=== PATIENT | male | born 1960 | race Caucasian/White ===

== ENCOUNTER 2023-05-24 11:03 | Inpatient (IN) ==
--- NOTE | 2023-05-23 11:32 | Anesthesiology Consultation ---
Date of Service May 23, 2023 Assessment & Plan (1) Encounter for pre-operative examination: - Pt scheduled for admission post-operatively. Plan for TYREE Day AM DOS due to possibility that patient may have a roommate. OR aware. Day order placed. - Danielis instructions per surgeon/prescriber - Orthopedics visit (05/18/23): "history of rotator cuff tear being managed conservatively by my colleague Dr. Lebron presents for eval of R shoulder infection. He noticed end of last week development of redness and swelling with increasing pain of right shoulder/upper arm that progressed over the following days. He ultimately went to the [facility] emergency department on 05/16 for evaluation. There he had an evaluation including an x-ray and an ultrasound scan of his right upper extremity. There was reported no findings of a DVT but possible concern of infection with possible abscess. He reports they were unsuccessful at attempts for aspiration. He was started on antibiotics (cefdinir) and discharged with recommendations to follow-up with orthopedics. He did have low-grade fever while at the ER but since starting on cefdinir, he has not had any recurrent fevers and reports he has had minimal improvement in his redness and swelling of his shoulder. He continues to have significant pain though with very marked limitations in range of motion and pain elicited with trying to move his shoulder." > Decision by orthopedics to have patient scheduled for surgical intervention/I&D. - Multiple attempts to obtain additional information/testing regarding PMHX/PSHX unsuccessful. Case reviewed with Dr. Santana. He feels that patient acceptable risk for given surgery without further evaluation and/or testing from his perspective pending evaluation AM DOS. - Patient acceptable risk for given surgery pending evaluation AM DOS. Chart Review Chart Review: Patient NOT seen in Pre Admission Testing History Surgery Operation Date: 05/24/23 12:55 Proposed Procedures p Right Arthroscopy Shoulder Irrigation and Debridement - Pascual Lebron, Height/Weight Height: 6 ft 1 in Weight: 113.398 kg Allergies Allergy/AdvReac Type Severity Reaction Status Date / Time No Known Allergies Allergy Unverified 05/23/23 12:16 Medications Home Medications Medication Instructions Recorded Confirmed Last Taken Hydrocodon/Acetaminophen 5MG/300MG 1 tab PO Q6H PRN Pain #0 tabs 07/13/15 05/23/23 Unknown (VICODIN (5MG/300MG)) Pregabalin (Lyrica) 300 mg PO BID ##0 07/13/15 05/23/23 Unknown DULOXETINE HCL (CYMBALTA) 60 mg PO BID #0 caps 07/14/15 05/23/23 Unknown linaclotide 72 mcg capsule 72 mcg PO QPM 07/06/21 05/23/23 Unknown (Linzess) Antacid 1 dose PO HS 05/23/23 05/23/23 Unknown apixaban 5 mg tablet (Eliquis) 5 mg PO BID 05/23/23 05/23/23 Unknown Past Medical History Medical History AAA (abdominal aortic aneurysm) Recent repair 01/29/2023 [facility] Acoustic neuroma Anemia Recent diagnosis currently undergoing further evaluation of this (including bone marrow biopsy- results still pending), preop hgb 11.0 on 05/23/23 labs Deafness in right ear Mahin filter in place Hearing deficit [place] R > L History of DVT (deep vein thrombosis) 12/2022 r/t immobility, taking Eliquis, mahin filter placed History of gastric ulcer 01/2023 History of GI bleed History of Lyme disease 2000- Chronic, reason for disabled state per patient (ambulation issues) History of pulmonary embolism 2017 Infection of shoulder Right Neuropathy Past Surgical History Surgical History History of AAA (abdominal aortic aneurysm) repair History of bone marrow biopsy History of cholecystectomy History of colonoscopy History of esophagogastroduodenoscopy (EGD) Lab Results Anesthesia Preop Results Results Anesthesia Widget: WBC 4.45 K/ul (4.8-10.8) L 05/23/23 Hgb 11.0 g/dl (14.0-18.0) L 05/23/23 Hct 36.6 % (42.0-52.0) L 05/23/23 Plt 453 K/uL (130-400) H 05/23/23 Na 141 mmol/L (136-145) 05/23/23 K 4.6 mmol/L (3.5-5.1) 05/23/23 Cl 107 mmol/L (98-107) 05/23/23 CO2 30 mmol/L (21-32) 05/23/23 BUN 16 mg/dl (6-23) 05/23/23 Creat 0.68 mg/dl (0.6-1.4) 05/23/23 Glucose Level 105 mg/dl (70-99(Fasting)) H 05/23/23 Testing Electrocardiogram Date: 05/23/23 NSR at 61bpm.
[~2023-05-24 11:03] MED LIST: LR 60ML/HR IV SCH; VANCOMYCIN HCL 1,750 MG in SODIUM CHLORIDE 0.9% 500 ML IV SCH
--- NOTE | 2023-05-24 11:47 | History & Physical Bridge Note ---
Date of Service May 24, 2023 History & Physical Bridge Note I have examined the patient, reviewed the History & Physical and in the interval since the performance of the History & Physical I have noted the following changes of clinical significance: no changes noted
[2023-05-24] MEDS ORDERED: ATROPINE SULFATE 0.1 MG/ML 10ML SYR IV PRN (12:19)
[2023-05-24] MEDS ORDERED: ONDANSETRON INJ 2 MG/ML 2 ML VIAL IV PRN ×2 (12:19→16:00)
[2023-05-24] MEDS ORDERED: PROMETHAZINE HCL 6.25 MG in SODIUM CHLORIDE 0.9% 50 ML IV PRN (12:19)
[2023-05-24] MEDS ORDERED: LIDOCAINE 2% 2 ML VIAL/AMP(20MG/ML) INFIL ONE (12:21)
[2023-05-24] MEDS ORDERED: PROPOFOL IV EMULSION 10 MG/ML 20 ML VIAL IV ONE (12:21)
[2023-05-24] MEDS ORDERED: DEXAMETHASONE SOD INJ 4 MG/ML VIAL ONE (12:21)
[2023-05-24] MEDS ORDERED: MIDAZOLAM HCL 1 MG/ML 2ML VIAL ONE (12:22)
[2023-05-24] MEDS ORDERED: fentaNYL citrate PF 100 MCG/2 ML VIAL ONE (12:22)
[2023-05-24] MEDS ORDERED: EPINEPHrine INJ 1 MG/ML AMP ONE (13:20)
[2023-05-24] MEDS ORDERED: BUPIVACAINE/EPINEPHRINE 0.5% MPF 1:200,000 30 ML VIAL ONE (13:20)
[2023-05-24] MEDS ORDERED: ONDANSETRON INJ 2 MG/ML 2 ML VIAL ONE (14:08)
--- NOTE | 2023-05-24 14:38 | Operative Report ---
PG Post Operative Report Pre & Post Diagnosis Operation Date: 05/24/23 12:55 Pre-Op Diagnosis: Infection Right Shoulder Post-Op Diagnosis: Infection Right Shoulder I identified the patient and participated in the time-out.: Yes Procedure Operation Date: 05/24/23 12:55 Actual Procedures p Right Arthroscopy Shoulder Irrigation and Debridement(Right) - Pascual Lebron DO Surgeon Pascual Lebron DO Claim Administrator Pascual Salinas PA-C Estimated Blood Loss 5 Findings Consistent with Post-Op Diagnosis Specimens Swab cultures Description of Procedure On May 24, 2023 Claudio arrived at [facility] for the above procedure. He was seen in the preoperative holding area and the operative extremity identified and signed. He was given a preoperative antibiotic. He was taken back to the operative room and laid on the table in supine position. Is put under general anesthesia. Is put into the beachchair position. The right shoulder was prepped and draped in sterile fashion. A timeout was done. The patient and the operative extremity was properly identified. A scope was introduced into a posterior portal. There was some rather watery purulent discharge that came out of the cannula. This was cultured. The scope was placed into the joint. An anterior portal was made. Shaver was used to do a debridement of the synovium. About 3 L of fluid was washed through the joint intra-articularly. There was a large rotator cuff tear of the supra and infraspinatus. There was some arthritis of the humeral head. The scope was then put in the subacromial space. A lateral portal was made and a shaver was used to do a complete subacromial and subdeltoid bursectomy. There was cloudy fluid throughout. 6 L of saline solution were irrigated through the subacromial and subdeltoid spaces. Significant time was spent debriding any pathologic tissue. The shoulder was brought through a full range of motion. An additional anterior lateral portal was made and a shaver was used from another direction to clean out any remaining pockets of abscess. A total of 9 L of saline were irrigated through the shoulder joint. Hemostasis was obtained with electrocautery. Arthroscopic instruments removed from the shoulder. Portal sites were closed with 3-0 nylon. He was then placed in a soft dressing and a regular arm sling. He was then extubated and transferred to a [facility]. He was taken to the postanesthesia care unit in stable condition. He tolerated the procedure well. Pascual Salinas PA-C, was present for the entire procedure. He was critical for patient positioning, prepping, draping, retraction exposure, wound closure and application of sterile dressing. I attest to the content of the Intraoperative Record and any orders documented therein. Any exceptions are noted below.
--- NOTE | 2023-05-24 15:05 | Anesthesiology Progress Note ---
Date of Service May 24, 2023 Anesthesia Post Procedure Vital Signs Vital Signs: Temp Pulse Pulse Resp BP Pulse Ox O2 Del Method 05/24/23 15:00 62 23 162/93 H 97 Oxymask 05/24/23 14:50 36.2 C L 66 23 163/97 H 94 Oxymask 05/24/23 11:38 36.7 C 63 18 108/72 97 Room Air O2 Flow Rate 05/24/23 15:00 6 05/24/23 14:50 8 05/24/23 11:38 Pain Intensity Right Shoulder: Pain Intensity: 2 Leg: Pain Intensity: 3 Transfer of Care Handoff Completed per policy Notes Mental Status: alert / awake / arousable Patient Amnestic to Procedure: Yes Nausea / Vomiting: adequately controlled Pain: adequately controlled Airway Patency, RR, SpO2: stable & adequate BP & HR: stable & adequate Hydration State: stable & adequate Anesthetic Complications: no major complications apparent
[2023-05-24] MEDS: HYDROmorphone INJ 1 MG/ML SYRINGE IV PRN ×3 (15:10→15:32)
[2023-05-24] MEDS ORDERED: VANCOMYCIN CONSULT ACTIVE PRN (16:00)
--- NOTE | 2023-05-24 17:23 | Pharmacy Report ---
Pharmacy PK ABX Note - Date of Service May 24, 2023 - Assessment and Plan Assessment 62 year old M admitted for right shoulder infection s/p incision and drainage. Started on vancomycin IV following surgery. Patient has a known rotator cuff tear and cuff tear arthropathy of his right shoulder. He was evaluated at [facility] ER due to increasing pain and swelling of his right shoulder and was started on antibiotics. He was then seen by outpatient Ortho who recommended irrigation and debridement. 05/24/23: R shoulder culture pending Plan Vancomycin * 1750 mg IV x 1 given pre-op * Maintenance dose: 1500 mg IV every 12 hours * Regimen is predicted to achieve target AUC/LORI of 400-600 mg/L.hr * predicted steady state trough: 17.5 mcg/mL * predicted steady state AUC: 543 * Drug level to be obtained if vanco is extended past 48 hours Pharmacy will continue to follow and will adjust dose/frequency as necessary. Thank you. Pharmacy has transitioned to AUC monitoring for vancomycin. AUC/LORI is the preferred PK/PD target and is associated with decreased risk of nephrotoxicity compared to traditional trough targets.
--- NOTE | 2023-05-24 18:28 | Hospitalist Consultation ---
Date of Consultation May 24, 2023 Assessment & Plan (1) Infection of shoulder: Take blood cultures now to ensure sterile in case of need of PICC line. HIM request for blood cultures taken at [facility] on May 15. Since cellulitis area improving on cefdinir if blood culture negative from May 15 doubtful he would be bacteremic now and unlikely MRSA given improvement without coverage for this. Vancomycin ordered by primary team, will add cefepime pending blood and surgical culture results. Infectious disease consulted by primary team for ongoing antibiotic selection. (2) Mahin filter in place: (3) History of pulmonary embolism: Continue Eliquis - restarted by surgical team (4) History of AAA (abdominal aortic aneurysm) repair: Recently repaired in December per patient (5) History of gastric ulcer: Med rec not performed on admission and initially unable to request outside external pharmacy list however patient consented to this now and changed. Appears he should be taking both pantoprazole and famotidine therefore added to home meds and prescribed. (6) Microcytic anemia: Consider iron studies as outpatient - would avoid IV iron during active infection Plan VTE Prophylaxis - Eliquis Diet - per primary orthopedic team Disposition - continued med.surg admission Thank you for the consult we will continue to follow along with you while this patient is admitted. History of Present Illness Reason for Consultation: [place] right shoulder infection Attending Physician: Pascual Lebron, History of Present Illness Henrry Hannon is a 62 year old male who presents as a direct admission under orthopedics for septic shoulder with irrigation and debridement performed earlier today by Dr Lebron with estimated blood loss 5ml. The patient reports initial traumatic injury in November of this year and he has been seeing Dr Lebron for this with diagnosed right rotator cuff tear for which he received a subacromial injection both in November and February. In the mean time he reports having a rupture aortic aneurysm with subsequent repair and recurrent DVT requiring a mahin filter which is still in place in December. 2 weeks ago he started noticing erythema and swelling of his right upper arm. He had a open tear of skin of his elbow around the same time but does not think the redness was around this area. He was seen at [facility] ER on May 15 and had a right shoulder XR and US with concern for an abscess however they had no orthopedic cover therefore was started on cefdinir and advised to follow up with his orthopedic surgeon. This occurred on May 18 at [address] point a [address] shoulder was obtained concerning for septic arthritis hence the subsequent direct admission for I&D. He does note significant improvement of his cellulitis since starting the cefdinir which he has been on constantly including this morning since his ER visit. No fever or chills. He thinks blood cultures were taken at [facility] although results of this not available at this time. Allergies Allergy/AdvReac Type Severity Reaction Status Date / Time No Known Allergies Allergy Unverified 05/24/23 11:43 Home Medications Medication Instructions Recorded Confirmed Type Hydrocodon/Acetaminophen 5MG/300MG 1 tab PO Q6H PRN Pain #0 tabs 07/13/15 05/24/23 History (VICODIN (5MG/300MG)) Pregabalin (Lyrica) 300 mg PO BID ##0 07/13/15 05/24/23 History DULOXETINE HCL (CYMBALTA) 60 mg PO BID #0 caps 07/14/15 05/24/23 History linaclotide 72 mcg capsule 72 mcg PO QPM 07/06/21 05/24/23 History (Linzess) Antacid 1 dose PO HS 05/23/23 05/24/23 History apixaban 5 mg tablet (Eliquis) 5 mg PO BID 05/23/23 05/24/23 History cefdinir 300 mg capsule 300 mg PO BID 05/24/23 05/24/23 History famotidine 40 mg tablet 40 mg PO HS 05/25/23 05/25/23 History omeprazole 40 mg capsule,delayed 40 mg PO DAILY 05/25/23 05/25/23 History release Patient History Medical History (Updated 05/25/23 @ 06:43 by Nicolas Freeman MD) AAA (abdominal aortic aneurysm) Recent repair 01/29/2023 [facility] Acoustic neuroma Anemia Recent diagnosis currently undergoing further evaluation of this (including bone marrow biopsy- results still pending), preop hgb 11.0 on 05/23/23 labs Deafness in right ear Mahin filter in place Hearing deficit [place] R > L History of DVT (deep vein thrombosis) 12/2022 r/t immobility, taking Eliquis, mahin filter placed History of gastric ulcer 01/2023 History of GI bleed History of Lyme disease 2001- Chronic, reason for disabled state per patient (ambulation issues) History of pulmonary embolism 2018 Infection of shoulder Right Neuropathy Surgical History (Updated 05/24/23 @ 23:31 by Nicolas Freeman MD) History of AAA (abdominal aortic aneurysm) repair History of bone marrow biopsy History of cholecystectomy History of colonoscopy History of esophagogastroduodenoscopy (EGD) Social History Smoking Status: Never smoker Second Hand Exposure: No; Do You Dip or Chew Tobacco: No; Hx Alcohol Use: No Hx Substance Use: No Preferred Language: [place] Communication Ability: Effective Labor Economist Required: No Beliefs That Will Affect Care: None Current Living Situation: Spouse Feels Safe at Home: Yes Safety Concerns: Feels Safe At This Time Assistive Devices: Scooter/Electric Scooter Review of Systems Review of Systems: All systems reviewed & are unremarkable except as noted in HPI & below Physical Exam Constitutional: WD/WN, vitals as above Respiratory: normal respiratory effort, lungs clear to auscultation Cardiovascular: Rate/Rhythm: regular rate and regular rhythm Heart Sounds: no murmur Extremities: normal capillary refill and + pedal edema (1+ equal b/l); no calf tenderness Gastrointestinal (Abdomen): normal bowel sounds, soft, nontender, no hepatosplenomegaly Skin: no rashes, warm and dry no area of cellulitis surrounding surgical dressing, surgical dressing not removed Neurologic: moves all extremities and awake; not confused Psychiatric: A+Ox3, euthymic affect Results & Data Results & Data Vital Signs (Past 12 Hours) Vital Signs Temp Pulse Pulse Resp BP Pulse Ox O2 Del Method 05/24/23 17:59 36.3 C L 60 14 117/79 97 Room Air 05/24/23 17:19 36.4 C L 65 18 125/79 98 Room Air 05/24/23 16:30 36.4 C L 62 18 125/78 95 Room Air 05/24/23 16:00 36.5 C 63 18 142/87 H 96 Room Air 05/24/23 15:50 60 18 133/86 95 Room Air 05/24/23 15:40 63 21 130/88 97 Room Air 05/24/23 15:30 36.4 C L 59 L 21 136/89 97 Room Air 05/24/23 15:20 65 22 146/88 H 98 Room Air 05/24/23 15:10 64 22 168/90 H 100 Room Air 05/24/23 15:00 62 23 162/93 H 97 Oxymask 05/24/23 14:50 36.2 C L 66 23 163/97 H 94 Oxymask 05/24/23 11:38 36.7 C 63 18 108/72 97 Room Air O2 Flow Rate 05/24/23 17:59 05/24/23 17:19 05/24/23 16:30 05/24/23 16:00 05/24/23 15:50 05/24/23 15:40 05/24/23 15:30 05/24/23 15:20 05/24/23 15:10 05/24/23 15:00 6 05/24/23 14:50 8 05/24/23 11:38 PG Care Time/CCT Total # of Minutes Spent Total Time Spent with Patient: Total time spent is greater than 50% in coordination of care (as documented) at patient's floor/unit and/or counseling patient: Coding Level of Care Code 85232 IN/OBS CONSULT LVL 5,80M Diagnoses Infection of shoulder M00.[address] Z95.828 History of pulmonary embolism Z86.711 History of AAA (abdominal aortic aneurysm) repair Z98.890 History of gastric ulcer Z87.11 Microcytic anemia D50.9
[2023-05-24] MEDS ORDERED: ANTACID PO SCH (21:00)
[2023-05-24] MEDS: oxyCODONE/ACETAMINOPHEN 5mg/325mg TAB PO PRN ×2 (21:06→21:14)
[2023-05-24] MEDS: linaCLOtide 72 MCG CAPSULE PO SCH (21:15)
[2023-05-24] MEDS: CEFEPIME 2,000 MG in SYRINGE 0 ML IV SCH (21:18)
[2023-05-24] MEDS: PREGABALIN 100 MG CAP PO SCH (21:18)
[2023-05-24] MEDS: DULoxetine HCL 60 MG CAP PO SCH (21:18)
[2023-05-24] MEDS: VANCOMYCIN HCL 1,500 MG in SODIUM CHLORIDE 0.9% 500 ML IV SCH (23:26)
[2023-05-25] MEDS: CEFEPIME 2,000 MG in SYRINGE 0 ML IV SCH ×3 (05:07→20:15)
[2023-05-25 07:24] LABS: Basophils # (auto) 0.04 K/uL (0-0.2); Basophils % (auto) 0.7 %; Eosinophils # (auto) 0.01 K/uL (0-0.50); Eosinophils % (auto) 0.2 %; Hematocrit (blood only) 35.7 % (42.0-52.0); Immature Granulocytes # (auto) 0.02 K/uL (0.01-0.20); Immature Granulocytes % (auto) 0.3 %; Lymphocytes # (auto) 1.19 K/uL (1.2-3.4); Lymphocytes % (auto) 19.4 %; Mean Corpuscular Hemoglobin 23.9 pg (25.0-34.0); Mean Corpuscular Hgb Conc 30.8 g/dL (32.0-36.0); Mean Corpuscular Volume 77.6 fL (80.0-100.0); Mean Platelet Volume 9.8 fL (9.4-12.4); Monocytes # (auto) 0.78 K/uL (0.11-0.59); Monocytes % (auto) 12.7 %; Neutrophils % (auto) 66.7 %; Platelet Count 420 K/uL (130-400); RDW Coefficient of Variation 20.6 % (11.5-14.5); RDW Standard Deviation 55.8 fL (36.4-46.3); White Blood Count 6.14 K/ul (4.8-10.8)
[2023-05-25 07:39] LABS: Albumin Globulin Ratio 0.9 (0.9-2); BUN Creatinine Ratio 17.4 (10-20); Bilirubin,Total 0.4 mg/dl (0.2-1.0); C Reactive Protein 1.24 mg/dl (0-0.5); Calcium 8.7 mg/dl (8.6-10.3); Est GFR (African American) 116.3 ml/min; Est GFR (Non-African American) 100.3 ml/min; Globulin 3.2 gm/dl (2.5-4.0); Potassium 4.2 mmol/L (3.5-5.1); Total Protein 6.2 gm/dl (6.0-8.3)
[2023-05-25 07:57] LABS: Anisocytosis Present; Ovalocytes 1+; Polychromasia 1+
[2023-05-25] MEDS: PREGABALIN 100 MG CAP PO SCH ×2 (08:28→21:12)
[2023-05-25] MEDS: PANTOprazole 40 MG TAB PO SCH (08:28)
[2023-05-25] MEDS: APIXABAN 5 MG TABLET PO SCH ×2 (08:29→21:15)
[2023-05-25] MEDS: DULoxetine HCL 60 MG CAP PO SCH ×2 (08:29→21:12)
[2023-05-25] MEDS: oxyCODONE/ACETAMINOPHEN 5mg/325mg TAB PO PRN ×3 (08:59→20:14)
[2023-05-25] MEDS ORDERED: MICONAZOLE NITRATE POWDER 85 GM EXT PRN (09:11)
[2023-05-25] MEDS: VANCOMYCIN HCL 1,500 MG in SODIUM CHLORIDE 0.9% 500 ML IV SCH ×2 (11:45→23:29)
--- NOTE | 2023-05-25 12:20 | Hospitalist Progress Note ---
Date of Service May 25, 2023 Assessment & Plan (1) Infection of shoulder: Plan: Acute/unstable - [place] septic arthritis - Take blood cultures now to ensure sterile in case of need of PICC line. BCx still pending. - HIM request for blood cultures taken at [facility] on May 15. - Since cellulitis area improving on cefdinir if blood culture negative from May 15 doubtful he would be bacteremic now and unlikely MRSA given improvement without coverage for this. - Vancomycin ordered by primary team, will add cefepime pending blood and surgical culture results. - Gram stain negative - Unsure of shoulder was aspirated at [facility], if so those results should be faxed as well for review - Infectious disease consulted by primary team for ongoing antibiotic selection. - Does not need Rifampin as he does not have indwelling hardware (2) History of pulmonary embolism: Plan: Chronic/stable - Continue Eliquis - restarted by surgical team (3) History of AAA (abdominal aortic aneurysm) repair: Plan: Chronic/stable - Recently repaired in December per patient (4) History of gastric ulcer: Plan: Chronic/stable - Continue pantoprazole and famotidine (5) Microcytic anemia: Plan: Chronicity uncertain/stable - Consider iron studies as outpatient - would avoid IV iron during active infection Plan Patient asking for voltaren gel for his low back which is fine and has been ordered qid prn. Patient is medically stable, anticipate will need at least 4 weeks of IV abx pending cultures but ultimately since primary team ordered the ID consult, would defer to their recommendations. Will continue to chart check, but will sign off as we are not actively managing the infection/abx. Please feel free to contact should any acute needs arise while patient remains in house. Thank you for allowing us to participate in the care of your patient. Plan to be d/w Dr. Scott. Admission and Anticipated Discharge Date Admission Date: May 24, 2023 Supervising Physician Co-Signing Physician Notes The patient was not seen by me. The chart was reviewed. Case discussed with SARAH Parada. Agree with assessment and plan Subjective Patient was seen on daily rounds this morning. Resting comfortably in bed, has no complaints. Denies fever/chills, headache, cp, or dyspnea. Shoulder pain is adequately controlled. Physical Exam Physical Exam: GENERAL: 62 yo well-developed, well-nourished M. AAOx4. NAD. LUNGS: Clear to auscultation bilaterally w/o W/R/R. CARDIOVASCULAR: Regular rate and rhythm. ABDOMEN: Soft, non-tender and non-distended. BS normoactive x 4 quad. EXTREMITIES: No edema. Non-tender. Peripheral pulses +2/4. R shoulder is dressed with no presence of drain. Radial/ulnar pulses 2/4. Sensation/motor intact. Results & Data Results & Data Vital Signs (Past 12 Hours) Vital Signs Temp Pulse Resp BP Pulse Ox O2 Del Method 05/25/23 07:17 36.8 C 71 18 136/84 95 Room Air 05/25/23 03:05 36.6 C 66 18 104/63 96 Room Air Laboratory Results 05/25/23 06:56 05/25/23 06:56 PG Care Time/CCT Total # of Minutes Spent Total Time Spent with Patient: Total time spent is greater than 50% in coordination of care (as documented) at patient's floor/unit and/or counseling patient: Coding Level of Care Code 20192 SUB INP/OBS CARE 2/35MIN Diagnoses Infection of shoulder M00.9 History of pulmonary embolism Z86.711 History of AAA (abdominal aortic aneurysm) repair Z98.890 History of gastric ulcer Z87.11 Microcytic anemia D50.9
[2023-05-25] MEDS: DICLOFENAC SOD 1% GEL 100 GM TUBE EXT SCH ×3 (13:44→21:12)
--- NOTE | 2023-05-25 15:17 | Infectious Disease Consult ---
Date of Consultation May 25, 2023 Assessment & Plan (1) Infection of shoulder: (2) Rotator cuff tear, right: Plan This is a 62-year-old male with pmh of LE neuropathy, ruptured aortic aneurysm sp repair, recurrent DVT sp mahin filter, R rotator cuff tear s/p subacromial injection ( last injection 03/20/23) presents as a direct admit to the surgical service for R septic shoulder I and D. About 2 weeks ago, he began having increasing pain, swelling, erythema of his right shoulder. He initially went to [facility] Emergency Room and ultrasound was concerning for an abscess. There was no orthopedic surgeon available. Attempts at aspiration were unsuccessful. He was advised to follow up with Orthopedics and was started on Cefdinir. An outpatient CT of the R shoulder showed signs of an active intra- articular glenohumeral joint infection with multiple areas of abscess in the subacromial and subdeltoid spaces. He was then referred to Sergey Lopez as a direct admit for I and D by Orthopedics. He denied fever, chills, or sweats. He complained of pain and swelling of the shoulder He underwent Right Shoulder Arthroscopy with Irrigation and Debridement on 05/24. Purulent drainage noted intraoperatively. Cultures were obtained and are pending He was started Iv vancomycin and Cefepime post operatively. ID consulted for R koi shoulder infection. He is comfortable on exam and tolerating antibiotics. He complains of shoulder pain. He denies fever, chills, nausea, vomiting, abdominal pain or diarrhea. Family at bedside. Micro BC 05/24 NGTD Intraop CX 05/24 g/s no organisms, CX PENDING Antibiotics vanco 05/24-ongoing Cefepime 05/24 -ongoing 1.Right Shoulder [place] joint infection - was on cefdinir prior to OR - Sp OR 05/24 He was on cefdinir prior to OR which may decrease bacterial load in OR. ESR 51. CRp 1.44 Recommendations: -Will change IV vancomycin per pharmacy protocol to Daptomycin 6 mg/kg IV daily for ease of doing in outpatient setting IN CASE intraop Cx positive for MRSA. CPK ordered -Continue Cefepime 2 G iv q 8 -Follow up Intraop cx -Follow up Blood cx -Will adjust antibiotics based on Culture results. Final recs based on pending results. I anticipate 4 weeks of pathogen targeted therapy. Thank you for this consultation. ID will continue to follow. James Mahmood MD, MPH Infectious Disease [facility] Call [phone] with questions Consultation Information Consultation was provided via telemedicine using two-way real-time interactive telecommunication between the patient and the telemedicine provider. For the duration of the visit, the provider was performing the assessment from a different facility than the patient. This includesuse of bluetooth stethoscope forauscultationperformed by the telepresenter that the telemedicine provider can hear if described in the physical exam. [employer] contact information: Please call [facility] Call Center [phone]. (Phone Number For Physician Use Only) After establishing a telemedicine visit, patient was: Patient was verified with two unique identifiers, Patient/authorized rep acknowledged consent and unde rstanding and Gave permission to continue telehealth session Time Spent with Patient: Initial => 75 min History of Present Illness Reason for Consultation: [place] R shoulder joint infection Requesting Physician: Pascual Lebron DO Attending Physician: Pascual Lebron DO History of Present Illness This is a 62-year-old male with pmh of LE neuropathy, ruptured aortic aneurysm sp repair, recurrent DVT sp mahin filter, R rotator cuff tear s/p subacromial injection ( last injection 03/20/23) presents as a direct admit to the surgical service for R septic shoulder I and D. About 2 weeks ago, he began having increasing pain, swelling, erythema of his right shoulder. He initially went to [facility] Emergency Room and ultrasound was concerning for an abscess. There was no orthopedic surgeon available. Attempts at aspiration were unsuccessful. He was advised to follow up with Orthopedics and was started on Cefdinir. An outpatient CT of the R shoulder showed signs of an active intra- articular glenohumeral joint infection with multiple areas of abscess in the subacromial and subdeltoid spaces. He was then referred to Sergey Lopez as a direct admit for I and D by Orthopedics. He denied fever, chills, or sweats. He complained of pain and swelling of the shoulder He underwent Right Shoulder Arthroscopy with Irrigation and Debridement on 05/24. Purulent drainage noted intraoperatively. Cultures were obtained and are pending He was started Iv vancomycin and Cefepime post operatively. ID consulted for R koi shoulder infection. He is comfortable on exam and tolerating antibiotics. He complains of shoulder pain. He denies fever, chills, nausea, vomiting, abdominal pain or diarrhea. Family at bedside Allergies Allergy/AdvReac Type Severity Reaction Status Date / Time No Known Allergies Allergy Unverified 05/24/23 11:43 Home Medications Medication Instructions Recorded Confirmed Type Hydrocodon/Acetaminophen 5MG/300MG 1 tab PO Q6H PRN Pain #0 tabs 07/13/15 05/24/23 History (VICODIN (5MG/300MG)) Pregabalin (Lyrica) 300 mg PO BID ##0 07/13/15 05/24/23 History DULOXETINE HCL (CYMBALTA) 60 mg PO BID #0 caps 07/14/15 05/24/23 History linaclotide 72 mcg capsule 72 mcg PO QPM 07/06/21 05/24/23 History (Linzess) Antacid 1 dose PO HS 05/23/23 05/24/23 History apixaban 5 mg tablet (Eliquis) 5 mg PO BID 05/23/23 05/24/23 History cefdinir 300 mg capsule 300 mg PO BID 05/24/23 05/24/23 History famotidine 40 mg tablet 40 mg PO HS 05/25/23 05/25/23 History omeprazole 40 mg capsule,delayed 40 mg PO DAILY 05/25/23 05/25/23 History release Patient History Medical History (Updated 05/25/23 @ 06:43 by Nicolas Freeman MD) AAA (abdominal aortic aneurysm) Recent repair 01/29/2023 [facility] Acoustic neuroma Anemia Recent diagnosis currently undergoing further evaluation of this (including bone marrow biopsy- results still pending), preop hgb 11.0 on 05/23/23 labs Deafness in right ear Mahin filter in place Hearing deficit TLINGIT & HAIDA R > L History of DVT (deep vein thrombosis) 2018 12/2022 r/t immobility, taking Eliquis, mahin filter placed History of gastric ulcer 01/2023 History of GI bleed History of Lyme disease 2000- Chronic, reason for disabled state per patient (ambulation issues) History of pulmonary embolism 2017 Infection of shoulder Right Neuropathy Surgical History (Updated 05/24/23 @ 23:31 by Nicolas Freeman MD) History of AAA (abdominal aortic aneurysm) repair History of bone marrow biopsy History of cholecystectomy History of colonoscopy History of esophagogastroduodenoscopy (EGD) Social History Smoking Status: Never smoker Second Hand Exposure: No; Do You Dip or Chew Tobacco: No; Hx Alcohol Use: No Hx Substance Use: No Preferred Language: Cymro Communication Ability: Effective Desizing Machine Back Tender Required: No Beliefs That Will Affect Care: None Current Living Situation: Spouse Feels Safe at Home: Yes Safety Concerns: Feels Safe At This Time Assistive Devices: Walker and Wheelchair Review of System A 10 point ROS obtained. Pertinent positives as per hpi Physical Exam Physical Exam: Gen- NAD HEENT- ATNC EOMI, Anicteric sclera Neck - supple Lungs- NO increased Work of breathing Abd- soft , NT , ND MSK- Right shoulder dressed and in sling. + TTP. Dried blood on dressing. Neuro- AAO*3 Results & Data Vital Signs (Past 12 Hours) Vital Signs Temp Pulse Resp BP Pulse Ox O2 Del Method 05/25/23 07:17 36.8 C 71 18 136/84 95 Room Air Laboratory Results Laboratory Results - last 48 hr 05/24/23 05/25/23 05/25/23 Unknown 06:56 06:56 WBC 6.14 RBC 4.60 L Hgb 11.0 L Hct 35.7 L MCV 77.6 L MCH 23.9 L MCHC 30.8 L RDW Std Deviation 55.8 H RDW Coeff of Radha 20.6 H Plt Count 420 H MPV 9.8 Immature Gran % (Auto) 0.3 Neut % (Auto) 66.7 Lymph % (Auto) 19.4 [place] % (Auto) 12.7 Eos % (Auto) 0.2 Baso % (Auto) 0.7 Neut # (Auto) 4.10 Lymph # (Auto) 1.19 L [place] # (Auto) 0.78 H Eos # (Auto) 0.01 Baso # (Auto) 0.04 Immature Gran # (Auto) 0.02 Polychromasia 1+ Anisocytosis Present Ovalocytes 1+ ESR Sodium 140 Potassium 4.2 Chloride 106 Carbon Dioxide 31 Anion Gap 3 BUN 12 Creatinine 0.69 Est Cr Clr Drug Dosing 143.0 Est GFR ( Amer) 116.3 Est GFR (Non-Af Amer) 100.3 BUN/Creatinine Ratio 17.4 Glucose 91 Calcium 8.7 Total Bilirubin 0.4 AST 17 ALT 15 Alkaline Phosphatase 92 C-Reactive Protein 1.24 H Total Protein 6.2 Albumin 3.0 L Globulin 3.2 Albumin/Globulin Ratio 0.9 Procalcitonin SARS-CoV-2, RNA, NAAT NEGATIVE 05/25/23 05/25/23 06:56 06:56 WBC RBC Hgb Hct MCV MCH MCHC RDW Std Deviation RDW Coeff of Radha Plt Count MPV Immature Gran % (Auto) Neut % (Auto) Lymph % (Auto) [place] % (Auto) Eos % (Auto) Baso % (Auto) Neut # (Auto) Lymph # (Auto) [place] # (Auto) Eos # (Auto) Baso # (Auto) Immature Gran # (Auto) Polychromasia Anisocytosis Ovalocytes ESR 35 H Sodium Potassium Chloride Carbon Dioxide Anion Gap BUN Creatinine Est Cr Clr Drug Dosing Est GFR ( Amer) Est GFR (Non-Af Amer) BUN/Creatinine Ratio Glucose Calcium Total Bilirubin AST ALT Alkaline Phosphatase C-Reactive Protein Total Protein Albumin Globulin Albumin/Globulin Ratio Procalcitonin < 0.05 SARS-CoV-2, RNA, NAAT Diagnostic Findings Microbiology 05/24/23 14:29 Shoulder,Right Gram Stain - Final 05/24/23 14:29 Shoulder,Right Aerobic and Anaerobic Culture - Preliminary No growth to date. Medications Administered Home Medications Medication Instructions Recorded Confirmed Last Taken Hydrocodon/Acetaminophen 5MG/300MG 1 tab PO Q6H PRN Pain #0 tabs 07/13/15 05/24/23 05/23/23 19:00 (VICODIN (5MG/300MG)) Pregabalin (Lyrica) 300 mg PO BID ##0 07/13/15 05/24/23 05/24/23 08:00 DULOXETINE HCL (CYMBALTA) 60 mg PO BID #0 caps 07/14/15 05/24/23 05/24/23 08:00 linaclotide 72 mcg capsule 72 mcg PO QPM 07/06/21 05/24/23 Unknown (Linzess) Antacid 1 dose PO HS 05/23/23 05/24/23 05/23/23 18:30 apixaban 5 mg tablet (Eliquis) 5 mg PO BID 05/23/23 05/24/2305/23/23 08:30 cefdinir 300 mg capsule 300 mg PO BID 05/24/23 05/24/23 05/24/23 famotidine 40 mg tablet 40 mg PO HS 05/25/23 05/25/23 Unknown omeprazole 40 mg capsule,delayed 40 mg PO DAILY 05/25/23 05/25/23 Unknown release Active Medications Generic Name Dose Route Start Last Admin Trade Name Freq PRN Reason Stop Dose Admin Apixaban 5 mg 05/25/23 09:00 05/25/23 08:29 Apixaban 5 Mg Tablet PO 06/24/23 08:59 5 mg BID BONNIE Administration Diclofenac Sodium 2 gm 05/25/23 13:00 05/25/23 13:44 Diclofenac Sod 1% Gel 100 Gm Tube EXT 06/24/23 12:59 2 gm QID BONNIE Administration Protocol Duloxetine HCl 60 mg 05/24/23 21:00 05/25/23 08:29 Duloxetine Hcl 60 Mg Cap PO 06/23/23 20:59 60 mg BID BONNIE Administration Vancomycin HCl 1,500 mg/ 530 mls @ 200 mls/hr 05/25/23 00:00 05/25/23 14:56 Sodium Chloride IV 05/27/23 00:00 Infused Q12H BONNIE Infusion Protocol Cefepime HCl 2,000 mg/ Syringe 20 mls @ 5 mls/min 05/24/23 20:00 05/25/23 11:45 IV 05/26/23 19:59 5 mls/min Q8H BONNIE Administration Protocol Linaclotide 72 mcg 05/24/23 21:00 05/24/23 21:15 Linaclotide 72 Mcg Capsule PO 06/23/23 20:59 Not Given QPM BONNIE Oxycodone/Acetaminophen 1 - 2 tab 05/24/23 16:00 05/25/23 13:54 Oxycodone/Acetaminophen 5mg/325mg Tab PO 06/07/23 15:59 2 tab Q4H PRN Administration Pain Pantoprazole Sodium 40 mg 05/25/23 09:00 05/25/23 08:28 Pantoprazole 40 Mg Tab PO 06/24/23 08:59 40 mg DAILY BONNIE Administration Protocol Pregabalin 300 mg 05/24/23 21:00 05/25/23 08:28 Pregabalin 100 Mg Cap PO 06/23/23 20:59 Not Given BID BONNIE
--- NOTE | 2023-05-25 16:51 | Orthopedic Progress Note ---
Date of Service May 25, 2023 Assessment & Plan (1) Infection of shoulder: So far he seems to be doing okay. He is on vancomycin. Blood cultures have been ordered as well. He has already been seen by the hospitalist and infectious disease. Intraoperative cultures are negative to date. We will continue the IV antibiotics for now and await for cultures to return. His pain is well controlled. Subjective " Was seen and examined at bedside this morning. Overall he is feeling better since the surgery. He is not having as much pain in his shoulder. He was seen by the hospitalist today as well as infectious disease.. Review of Systems All systems reviewed & are unremarkable except as noted in HPI & below. Physical Exam On physical examination of right shoulder, the swelling is down. The dressing is clean and dry. He is neurovascular intact.. Results & Data Results & Data Laboratory Results . Diagnostic Findings . PG Care Time/CCT Total # of Minutes Spent Total Time Spent with Patient: Total time spent is greater than 50% in coordination of care (as documented) at patient's floor/unit and/or counseling patient: Coding Level of Care Code 24417 Post Operative Follow-Up Diagnoses Infection of shoulder M00.9
[2023-05-25] MEDS: linaCLOtide 72 MCG CAPSULE PO SCH ×2 (21:13→21:17)
[2023-05-25] MEDS: FAMOTIDINE 40 MG TABLET PO SCH (21:13)
[2023-05-26] MEDS: CEFEPIME 2,000 MG in SYRINGE 0 ML IV SCH ×2 (03:48→12:29)
[2023-05-26] MEDS: oxyCODONE/ACETAMINOPHEN 5mg/325mg TAB PO PRN ×3 (03:56→18:38)
[2023-05-26 05:59] LABS: Basophils # (auto) 0.04 K/uL (0-0.2); Eosinophils # (auto) 0.05 K/uL (0-0.50); Eosinophils % (auto) 1.2 %; Hematocrit (blood only) 37.4 % (42.0-52.0); Hemoglobin 11.6 g/dl (14.0-18.0); Immature Granulocytes # (auto) 0.02 K/uL (0.01-0.20); Immature Granulocytes % (auto) 0.5 %; Lymphocytes # (auto) 1.04 K/uL (1.2-3.4); Lymphocytes % (auto) 25.7 %; Mean Corpuscular Hemoglobin 23.6 pg (25.0-34.0); Monocytes # (auto) 0.67 K/uL (0.11-0.59); Monocytes % (auto) 16.5 %; Neutrophils # (auto) 2.23 K/uL (1.40-6.50); Neutrophils % (auto) 55.1 %; Platelet Count 380 K/uL (130-400); RDW Coefficient of Variation 21.2 % (11.5-14.5); RDW Standard Deviation 56.1 fL (36.4-46.3); Red Blood Count 4.92 M/uL (4.70-6.10); White Blood Count 4.05 K/ul (4.8-10.8)
[2023-05-26 06:11] LABS: Anion Gap 4 (3-11); Calcium 8.8 mg/dl (8.6-10.3); Carbon Dioxide 28 mmol/L (21-32); Chloride 105 mmol/L (98-107); Magnesium 1.7 mg/dl (1.7-2.4); Sodium 137 mmol/L (136-145)
[2023-05-26 06:13] LABS: BUN Creatinine Ratio 16.2 (10-20); Blood Urea Nitrogen 12 mg/dl (6-23); Creatinine Clr Calc Pharmacy 133.3 ml/min; Est GFR (Non-African American) 97.5 ml/min; Glucose 85 mg/dl (70-99(Fasting))
[2023-05-26 06:20] LABS: Anisocytosis Present
[2023-05-26] MEDS: APIXABAN 5 MG TABLET PO SCH ×2 (09:12→20:48)
[2023-05-26] MEDS: PREGABALIN 100 MG CAP PO SCH ×2 (09:12→20:48)
[2023-05-26] MEDS: PANTOprazole 40 MG TAB PO SCH (09:12)
[2023-05-26] MEDS: DICLOFENAC SOD 1% GEL 100 GM TUBE EXT SCH ×4 (09:12→20:45)
[2023-05-26] MEDS: DULoxetine HCL 60 MG CAP PO SCH ×2 (09:13→20:48)
--- NOTE | 2023-05-26 09:14 | Orthopedic Progress Note ---
Date of Service May 26, 2023 Assessment & Plan (1) Infection of shoulder: So far his cultures are negative. We are still waiting final cultures and sensitivities. He was seen by infectious disease yesterday. He is currently on cefepime and IV daptomycin. He is tolerating the antibiotics well. Infectious disease is anticipating 4 weeks of antibiotics after we determine a pathogen. Christiano Sales was seen and examined at bedside this morning. Overall he is doing fairly well. He is having less pain in his shoulder now than he was before the surgery. He is tolerating the antibiotics well. He has no complaints.. Review of Systems All systems reviewed & are unremarkable except as noted in HPI & below. Physical Exam On physical examination of the right shoulder, the dressing is clean and dry. He is wearing his sling as instructed. He is neurovascular intact.. Results & Data Results & Data Laboratory Results . Diagnostic Findings . PG Care Time/CCT Total # of Minutes Spent Total Time Spent with Patient: Total time spent is greater than 50% in coordination of care (as documented) at patient's floor/unit and/or counseling patient: Coding Level of Care Code 35909 Post Operative Follow-Up Diagnoses Infection of shoulder M00.9
[2023-05-26] MEDS: DAPTOmycin 550 MG in SYRINGE 0 ML IV SCH (10:37)
[2023-05-26] MEDS: linaCLOtide 72 MCG CAPSULE PO SCH (20:45)
[2023-05-26] MEDS: FAMOTIDINE 40 MG TABLET PO SCH (20:48)
[2023-05-27] MEDS: DAPTOmycin 550 MG in SYRINGE 0 ML IV SCH (08:22)
[2023-05-27] MEDS: DICLOFENAC SOD 1% GEL 100 GM TUBE EXT SCH ×4 (08:23→21:52)
[2023-05-27] MEDS: PANTOprazole 40 MG TAB PO SCH (08:23)
[2023-05-27] MEDS: APIXABAN 5 MG TABLET PO SCH ×2 (08:23→21:52)
[2023-05-27] MEDS: DULoxetine HCL 60 MG CAP PO SCH ×2 (08:23→21:51)
[2023-05-27] MEDS: PREGABALIN 100 MG CAP PO SCH ×2 (08:27→21:56)
--- NOTE | 2023-05-27 08:40 | Orthopedic Progress Note ---
Date of Service May 27, 2023 Assessment & Plan (1) Infection of shoulder: Overall he is doing fairly well with the right shoulder. He is tolerating the antibiotics well. His cultures still show no growth to date. I am expecting final cultures to be back by tomorrow. I am hoping to send him home tomorrow on pathogen specific antibiotics. Subjective Requesting examined at bedside this morning. Overall is doing fairly well. Is not having too much pain in the right shoulder. He is on the cefepime and daptomycin. He has no complaints.. Review of Systems All systems reviewed & are unremarkable except as noted in HPI & below. Physical Exam On physical examination the right shoulder, the dressing is clean and dry. He is wearing his sling as instructed.. Results & Data Results & Data Laboratory Results . Diagnostic Findings . PG Care Time/CCT Total # of Minutes Spent Total Time Spent with Patient: Total time spent is greater than 50% in coordination of care (as documented) at patient's floor/unit and/or counseling patient: Coding Level of Care Code 03027 Post Operative Follow-Up Diagnoses Infection of shoulder M00.9
[2023-05-27] MEDS: oxyCODONE/ACETAMINOPHEN 5mg/325mg TAB PO PRN (13:45)
[2023-05-27] MEDS: CEFEPIME 2,000 MG in SYRINGE 0 ML IV SCH ×2 (13:56→21:57)
[2023-05-27] MEDS: FAMOTIDINE 40 MG TABLET PO SCH (21:52)
[2023-05-27] MEDS: linaCLOtide 72 MCG CAPSULE PO SCH (21:53)
[2023-05-28] MEDS: CEFEPIME 2,000 MG in SYRINGE 0 ML IV SCH (05:35)
[2023-05-28] MEDS: DICLOFENAC SOD 1% GEL 100 GM TUBE EXT SCH ×4 (08:44→21:02)
[2023-05-28] MEDS: DAPTOmycin 550 MG in SYRINGE 0 ML IV SCH (08:44)
[2023-05-28] MEDS: PREGABALIN 100 MG CAP PO SCH ×2 (08:44→21:01)
[2023-05-28] MEDS: PANTOprazole 40 MG TAB PO SCH (08:45)
[2023-05-28] MEDS: APIXABAN 5 MG TABLET PO SCH ×2 (08:45→21:02)
[2023-05-28] MEDS: DULoxetine HCL 60 MG CAP PO SCH ×2 (08:45→21:02)
--- NOTE | 2023-05-28 08:48 | Infectious Disease Progress Nt ---
Date of Service May 28, 2023 Assessment & Plan (1) Infection of shoulder: (2) Rotator cuff tear, right: Plan This is a 62-year-old male with pmh of LE neuropathy, ruptured aortic aneurysm sp repair, recurrent DVT sp chip filter, R rotator cuff tear s/p subacromial injection (last injection 03/20/23) presents as a direct admit to the surgical service for R septic shoulder I and D. About 2 weeks ago, he began having increasing pain, swelling, erythema of his right shoulder. He initially went to [facility] Emergency Room and ultrasound was concerning for an abscess. There was no orthopedic surgeon available. Attempts at aspiration were unsuccessful. He was advised to follow up with Orthopedics and was started on Cefdinir. An outpatient CT of the R shoulder showed signs of an active intra- articular glenohumeral joint infection with multiple areas of abscess in the subacromial and subdeltoid spaces. He was then referred to Sergey Christian as a direct admit for I and D by Orthopedics. He denied fever, chills, or sweats. He complained of pain and swelling of the shoulder. ESR 51. CRP 1.44. He underwent Right Shoulder Arthroscopy with Irrigation and Debridement on 05/24. Purulent drainage noted intraoperatively. Cultures were obtained and are NGTD. He was started vancomycin and Cefepime post operatively. ID consulted for R quechan shoulder infection. He was on cefdinir prior to OR which may decrease bacterial load in OR. OR culture did not grow MRSA or other gram negative which is not covered by cefdinir, so will plan to treat with an IV 3rd generation cephalosporin. Micro: BC 05/24 NGTD Intraop CX 05/24 g/s no organisms, Cx NGTD Antibiotics: vanco 05/24-05/25 Dapto 05/26 - ongoing Cefepime 05/24 -ongoing Problems: #Right Shoulder [place] joint infection - was on cefdinir prior to OR - Sp OR 05/24 Recommendations: -Stopped daptomycin and cefepime. -Started ceftriaxone 2 g IV q24h to complete a 4 week course from 05/24 - 06/20 -Pt will need PICC line placed -Check weekly CBC and CMP while on antibiotics to monitor for toxicity. Send results to monitoring provider -Follow-up final OR culture results. Please page [facility] Call Center with further questions. Admission and Anticipated Discharge Date Admission Date: May 24, 2023 Subjective This patient recommendation is based on a telemedicine consult request which was completed asynchronously through chart review and information provided by the primary physician. The patient was not seen or examined today. The evaluation is consultative in nature and all patient care and treatment decisions can either be accepted or rejected by the patient's primary hospital-based treating physician using their own independent medical judgment for their patient. Time Spent Reviewing Chart: 21 - 30 minutes Afebrile No acute events Continues on dapto, cefepime Review of System pt not seen Physical Exam Physical Exam: pt not seen Results & Data Vital Signs (Past 12 Hours) Vital Signs Temp Pulse Resp BP Pulse Ox O2 Del Method 05/28/23 08:29 36.6 C 73 17 129/87 97 Room Air 05/27/23 21:01 36.8 C 78 18 118/75 96 Room Air Medications Administered Current Inpatient Medications Apixaban (Apixaban 5 Mg Tablet) 5 mg PO BID BONNIE Stop: 06/24/23 08:59 Last Admin: 05/27/23 21:52 Dose: 5 mg Diclofenac Sodium (Diclofenac Sod 1% Gel 100 Gm Tube) 2 gm EXT QID BONNIE; P rotocol Stop: 06/24/23 12:59 Last Admin: 05/27/23 21:52 Dose: 2 gm Duloxetine HCl (Duloxetine Hcl 60 Mg Cap) 60 mg PO BID BONNIE Stop: 06/23/23 20:59 Last Admin: 05/27/23 21:51 Dose: 60 mg Famotidine (Famotidine 40 Mg Tablet) 40 mg PO HS BONNIE Stop: 06/24/23 20:59 Last Admin: 05/27/23 21:52 Dose: 40 mg Daptomycin 550 mg/ Syringe 11 mls @ 5.5 mls/min IV Q24H BONNIE; Protocol Stop: 07/07/23 06:44 Last Admin: 05/27/23 08:22 Dose: 5.5 mls/min Cefepime HCl 2,000 mg/ Syringe 20 mls @ 5 mls/min IV Q8H BONNIE; Protocol Stop: 07/08/23 11:59 Last Admin: 05/28/23 05:35 Dose: 5 mls/min Linaclotide (Linaclotide 72 Mcg Capsule) 72 mcg PO QPM BONNIE Stop: 06/23/23 20:59 Last Admin: 05/27/23 21:53 Dose: Not Given Miconazole Nitrate (Miconazole Nitrate Powder 85 Gm) 1 appln EXT PRN PRN PRN Reason: Affected Skin Folds Stop: 06/24/23 09:10 Ondansetron HCl (Ondansetron Inj 2 Mg/Ml 2 Ml Vial) 4 mg IV Q6H PRN PRN Reason: Nausea And Vomiting Stop: 06/23/23 15:59 Oxycodone/Acetaminophen (Oxycodone/Acetaminophen 5mg/325mg Tab) 1 - 2 tab PO Q4H PRN PRN Reason: Pain Stop: 06/07/23 15:59 Last Admin: 05/27/23 13:45 Dose: 2 tab Pantoprazole Sodium (Pantoprazole 40 Mg Tab) 40 mg PO DAILY [facility]; Protocol Stop: 06/24/23 08:59 Last Admin: 05/27/23 08:23 Dose: 40 mg Pregabalin (Pregabalin 100 Mg Cap) 300 mg PO BID [facility] Stop: 06/23/23 20:59 Last Admin: 05/27/23 21:56 Dose: 300 mg
[2023-05-28] MEDS: linaCLOtide 72 MCG CAPSULE PO SCH ×2 (11:32→21:01)
[2023-05-28] MEDS: cefTRIAXone SODIUM 2,000 MG in DEXTROSE 5% 50 ML IV SCH (13:31)
--- NOTE | 2023-05-28 13:49 | Orthopedic Progress Note ---
Date of Service May 28, 2023 Assessment & Plan (1) Infection of shoulder: Overall he is doing fairly well. He is not having much pain in the shoulder. His intraoperative cultures have not grown out anything. He was seen by infectious disease today. He was started on IV ceftriaxone daily. A PICC line was ordered. A PICC line will be placed today. He will likely be discharged home tomorrow after his morning dose of ceftriaxone. Subjective Henrry was seen and examined at bedside this morning. Overall is doing fairly well. Is not having much pain in the right shoulder. He has been tolerating the antibiotics well. He was seen by infectious disease today. He has no new complaints.. Review of Systems All systems reviewed & are unremarkable except as noted in HPI & below. Physical Exam On physical examination of the right shoulder, the dressing was changed. He does not have much erythema. He does not have much pain.. Results & Data Results & Data Laboratory Results . Diagnostic Findings . PG Care Time/CCT Total # of Minutes Spent Total Time Spent with Patient: Total time spent is greater than 50% in coordination of care (as documented) at patient's floor/unit and/or counseling patient: Coding Level of Care Code 11972 Post Operative Follow-Up Diagnoses Infection of shoulder M00.9
[2023-05-28] MEDS: FAMOTIDINE 40 MG TABLET PO SCH (21:01)
--- NOTE | 2023-05-29 08:32 | Orthopedic Progress Note ---
Date of Service May 29, 2023 Assessment & Plan (1) Infection of shoulder: Overall he is doing fairly well. He will receive his IV ceftriaxone this morning and then be discharged to home. He has been set up with a PICC line already and nursing will come to his house starting tomorrow to administer ceftriaxone. He will follow-up with orthopedics in 2 weeks. Subjective Regular seen and examined at bedside this morning. Overall is doing fairly well. Is not having too much pain in the right shoulder. He has been tolerating the antibiotics well. He is no complaints.. Review of Systems All systems reviewed & are unremarkable except as noted in HPI & below. Physical Exam On physical examination of the right shoulder, the dressing has been changed. There is not any erythema around the shoulder. He is neurovascular intact.. Results & Data Results & Data Laboratory Results . Diagnostic Findings . PG Care Time/CCT Total # of Minutes Spent Total Time Spent with Patient: Total time spent is greater than 50% in coordination of care (as documented) at patient's floor/unit and/or counseling patient: Coding Level of Care Code 55013 Post Operative Follow-Up Diagnoses Infection of shoulder M00.9
--- NOTE | 2023-05-29 08:34 | Discharge Summary ---
Date of Service May 29, 2023 Principal Diagnosis Same as "Discharge Diagnosis" noted below under Discharge Instructions. Discharge Exam On physical examination of the right shoulder, the dressing has been changed. There is not any erythema around the shoulder. He is neurovascular intact.. Discharge Data Consultations 05/24/23 16:00 Consult Hospitalist Routine Consult Infectious Diseases Routine 05/24/23 23:12 HIM [Consult Health Information Management] Routine Procedures Performed Operation Date: 05/24/23 12:55 Actual Procedures p Right Arthroscopy Shoulder Irrigation and Debridement(Right) - Pascual Lebron DO Ordered Studies 05/24/23 05:00 US - OR guided needle placemen Routine Hospital Course (1) Infection of shoulder: On May 24, 2023 Henrry arrived at [facility] and underwent an arthroscopic irrigation debridement of his right shoulder. Cultures were obtained during the procedure. He was on antibiotics for over a week before the procedure was done. Postoperatively he was started on IV vancomycin. The hospitalist and infectious disease were consulted. His hospital course was uneventful. On postop day #1 he was already feeling much better. He was tolerating the antibiotics well. He was switched to daptomycin and cefepime. He was seen initially by infectious disease. On postop day #2 he was doing well. Cultures were still negative. On postop day #3 continue to do well. Cultures were negative to date. He continued that daptomycin and the cefepime. On postop day #4, final cultures were negative. He was seen once again by infectious disease. The daptomycin and the cefepime were discontinued and he was started on ceftriaxone IV daily. A PICC line was placed. On postop day #5, he received a morning dose of ceftriaxone and then was discharged to home. He will follow with orthopedics in 2 weeks. PG Care Time/CCT Total # of Minutes Spent Total Time Spent with Patient: Total time spent is greater than 50% in coordination of care (as documented) at patient's floor/unit and/or counseling patient: Discharge Plan Discharge Items Patient Disposition: Home - Home Health Services Reason For Visit: POST SURGICAL CARE Discharge Diagnosis: Right shoulder infection Activity: Per Instructions section Non-emergency contact: Surgeon Call non-emergency contact if: your wound has increased redness and your wound has increased drainage Follow-up/Referrals: Raleigh Bowser PA-C [Primary Care Provider] - Diet: Regular Addtl Attending Provider Instructions: Right arm sling for comfort only May shower with sutures exposed. The sutures may get wet but do not soak the incisions. Take IV antibiotics as instructed. Follow-up with orthopedics in 2 weeks for suture removal. Please call the office to set up an appointment for a time that works for you. [phone]. Pending Studies at Discharge: No Stand-Alone Forms: My [facility], Smoking Cessation Medications and DC Order Prescriptions: Continued Hydrocodon/Acetaminophen 5MG/300MG (VICODIN (5MG/300MG)) 1 TAB tablet 1 tab PO Q6H PRN (Reason: Pain) Qty: 0 Pregabalin (Lyrica) 300 MG capsule 300 mg PO BID Qty: 0 DULOXETINE HCL (CYMBALTA) 60 MG capsule 60 mg PO BID Qty: 0 Linzess 72 mcg capsule 72 mcg PO QPM Eliquis 5 mg Tablet 5 mg PO BID Antacid 1 dose PO HS famotidine 40 mg tablet 40 mg PO HS omeprazole 40 mg capsule,delayed release(DR/EC) 40 mg PO DAILY Discontinued cefdinir 300 mg capsule 300 mg PO BID Discharge Orders: Discharge Order (Routine); Ordered 05/29/23 Ordered By: Pascual Lebron Admission Data Admit Date/Time: 05/24/23 17:23 Attending Provider: Pascual Lebron Admit Provider: Pascual Lebron Primary Care Provider: Raleigh Bowser Other Providers: Henrry Hernandez ; Gabriella Renteria ; Nicolas Ha ; Francesco Dumont ; Pramod Schaefer ; Eric Rolon ; Lisa Mcconnell ; Lydia Harding ; Zeferino Walsh ; Sierra Tubbs ; Robbie Juarez ; Kusum Harvey ; Curtis Rodriguez ; Kevin Gross ; Tricia Strickland ; Gabriella Ferreira ; Mily Edwards ; Yakov Hardwick ; Nicolas Freeman ; Thu Guzman ; Moustapha Hinton ; Rosalva Bailey ; Kilo Deluna ; Hamilton Worthy ; Ashli Santos ; Zain Harrell ; Stephen Thomas ; Randi Ingram ; Ayan Castañeda ; Helder Mayorga ; Francesco Culver ; Pinky Robles ; Yahir Rainey ; Susanne Landa ; Simone Mcdonald ; Gloria Adam ; Sharyn Yu ; Maty Jenkins ; James Mahmood ; Maru Shelby.
[2023-05-29] MEDS: DICLOFENAC SOD 1% GEL 100 GM TUBE EXT SCH (08:52)
[2023-05-29] MEDS: PANTOprazole 40 MG TAB PO SCH (08:52)
[2023-05-29] MEDS: DULoxetine HCL 60 MG CAP PO SCH (08:53)
[2023-05-29] MEDS: APIXABAN 5 MG TABLET PO SCH (08:53)
[2023-05-29] MEDS: cefTRIAXone SODIUM 2,000 MG in DEXTROSE 5% 50 ML IV SCH (08:56)
[2023-05-29] MEDS: PREGABALIN 100 MG CAP PO SCH (09:01)
== END 2023-05-29 10:28 | disposition home health service (06) | DRG 501 ==
LOC: ASU 11:03 → 3E 17:23

== ENCOUNTER 2023-10-01 10:51 | Observation (INO) ==
[2023-10-01] MEDS ORDERED: oxyCODONE/ACETAMINOPHEN 5mg/325mg TAB PO STA (12:13)
--- NOTE | 2023-10-01 12:33 | Emergency Department Note ---
Impression & Plan Hemarthrosis of left shoulder, Injury of left rotator cuff, Intractable pain, Chronic anticoagulation ED Provider Note CHIEF COMPLAINT: Shoulder pain HISTORY OF PRESENT ILLNESS: This 63-year-old male patient presents to the emergency department via private vehicle accompanied by and son complaining of pain in the left shoulder which started suddenly this morning. Patient reports a history of a torn rotator cuff on the left side. He had surgery on the right rotator cuff over the summer. He states that he has been experiencing some soreness and pain. He noticed some bruising about a week and a half ago. He states he was doing physical therapy and lifting weights, but then when they noticed the bruising, he stopped lifting weights. He states yesterday, he was outside pulling on a tractor with his left upper extremity. He states he did not notice much pain until this morning when he awoke. He reports increased swelling and pain diffusely throughout the left shoulder, primarily in the anterior aspect and radiates down toward the elbow. He states he is having difficulty moving the shoulder due to the severe pain. He denies any trauma or direct blow to the shoulder. The patient states the pain is sharp and throbbing and 10/10. The patient has taken Tylenol with relief of the pain. No previous significant previous shoulder disease or injury. No numbness or tingling. No neck or back pain. No chest pain or shortness of breath. No abdominal pain or nausea/vomiting. No cough. REVIEW OF SYSTEMS: A 6 system review of systems was performed with positives and pertinent negatives in the HPI. ALLERGIES: None PHYSICAL EXAM: Vital Signs: Reviewed nurse's notes, vital signs stable. GENERAL: This is a 63-year-old man, in no acute distress, but appears to be in pain, well-developed, well-nourished. MUSCULOSKELETAL: There is moderate edema in the left shoulder with diffuse ecchymosis and tenderness to palpation. There are no obvious nohemi deformities noted. The patient's range of motion is limited actively and passively due to pain. Supraspinatus strength 4/5. There is no clavicle tenderness. No tenderness of the humerus, elbow, wrist, or hand. Merchandising Director strength 5/5. Radial pulse 2+. NECK: No tenderness to palpation over the cervical spine. Supple. No tracheal deviation. HEART: Regular rate and rhythm without murmurs gallops or rubs. LUNGS: Clear to auscultation bilaterally without wheezes, rales or rhonchi. No accessory muscle use. No retractions. NEURO: The patient is alert and oriented to person, place, and time. Normal sensation to light and sharp touch. Capillary refill less than 2 seconds. EMERGENCY DEPARTMENT COURSE: I examined the patient. An X-ray of the left shoulder was reviewed by myself and radiology and shows no acute findings. Given patient's history of DVT and chronic anticoagulation therapy, we did elect to perform ultrasound to evaluate the vasculature of the left upper extremity. This was completed and showed no DVT and there was a partially visualized complex collection within the deep soft tissues of the left shoulder, favoring a complex fluid collection and could represent a hematoma, abscess, or complex joint effusion. IV access obtained, labs were drawn. Labs were reviewed by myself. Per my interpretation no leukocytosis, anemia, thrombocytopenia. INR 1.0. Renal, hepatic function and electrolytes without significant abnormality. I did discuss case with my attending physician. We did agree to complete CT angiogram imaging to further evaluate for active bleeding Given the nonspecific findings, I did recommend CT angiogram imaging to further evaluate the injury. I did discuss the case with the radiologist who made recommendations on the correct study to complete. CT angiogram of the chest and left humerus were completed and reviewed by myself and radiologist as noted. Concern for large left glenohumeral hemarthrosis with probable intramuscular hemorrhage involving the rotator cuff. No left upper extremity aneurysm or other acute active extravasation identified. Incidentally, embolization coils were noted with surgical clips in the james hepatis. 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 The patient was updated. At this point, he has received p.o. Percocet, 2 doses of IV morphine, IV Dilaudid. The patient notes he is starting to feel more comfortable but continues to experience pain. I did contact Dr. Jiang, orthopedic surgeon on-call. Discussed the case and he recommends that the patient could be discharged to home with outpatient follow-up if he is able to manage his symptoms. He notes that alternatively, he could be admitted to medicine for pain control, but that there is generally no acute surgical intervention to be completed at this time. I discussed case with the ED complex case manager I discussed the [facility] He did agree to see and evaluate the patient for admission. Please see his dictation regarding ongoing management care of this patient Differential diagnosis include fracture, subluxation, dislocation, contusion, ligamentous injury, neurovascular, compartment syndrome, aneurysm, hematoma, hemorrhage, as well as other pathologies. Patient was found to have an elevated blood pressure and was referred to their primary doctor for recheck and further treatment. I attest that I have personally reviewed the patient's current medication list. The chart was completed utilizing [employer] voice recognition software. Grammatical errors, random word insertions, pronoun errors, and incomplete sentences are an occasional consequence of this system due to software limitations, ambient noise, and hardware issues. Any formal questions or concerns about the content, text, or information contained within the body of this dictation should be directly addressed to the provider for clarification. Past Med/Surg History Medical History History of pulmonary embolism 2018 Infection of shoulder Right History of GI bleed 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 History of gastric ulcer 01/[address] History of DVT (deep vein thrombosis) 2018 12/2022 r/t immobility, taking Eliquis, mahin filter placed Neuropathy History of Lyme disease 2000- Chronic, reason for disabled state per patient (ambulation issues) Anemia Recent diagnosis currently undergoing further evaluation of this (including bone marrow biopsy- results still pending), preop hgb 11.0 on 05/23/23 labs Hearing deficit [place] R > L AAA (abdominal aortic aneurysm) Recent repair 01/29/2023 [facility] Surgical History History of AAA (abdominal aortic aneurysm) repair History of bone marrow biopsy History of cholecystectomy History of colonoscopy History of esophagogastroduodenoscopy (EGD) Social History Smoking Status: Never smoker Second Hand Exposure: No; Do You Dip or Chew Tobacco: No; Hx Alcohol Use: No Hx Substance Use: No Preferred Language: Urdu Communication Ability: Effective Principal Technologist Required: No Beliefs That Will Affect Care: None Current Living Situation: Spouse Feels Safe at Home: Yes Assistive Devices: Walker and Wheelchair Allergies Allergies Allergy/AdvReac Type Severity Reaction Status Date / Time No Known Allergies Allergy Unverified 05/24/23 11:43 Home Meds Home Medications Medication Instructions Recorded Confirmed Hydrocodon/Acetaminophen 5MG/300MG 1 tab PO Q6H PRN Pain #0 tabs 07/13/15 05/24/23 (VICODIN (5MG/300MG)) Pregabalin (Lyrica) 300 mg PO BID ##0 07/13/15 05/24/23 DULOXETINE HCL (CYMBALTA) 60 mg PO BID #0 caps 07/14/15 05/24/23 linaclotide 72 mcg capsule 72 mcg PO QPM 07/06/21 05/24/23 (Linzess) Antacid 1 dose PO HS 05/23/23 05/24/23 apixaban 5 mg tablet (Eliquis) 5 mg PO BID 05/23/23 05/24/23 famotidine 40 mg tablet 40 mg PO HS 05/25/23 05/25/23 omeprazole 40 mg capsule,delayed 40 mg PO DAILY 05/25/23 05/25/23 release Results & Data (ED) Vital Signs Vital Signs - 24 hr 10/01/23 11:02 10/01/23 13:03 10/01/23 16:26 Temperature 36.6 C Temperature Source Temporal Artery Scan Pulse Rate 79 Pulse Rate [Right Radial] 59 L 85 Pulse Rhythm [Right Radial] Regular Pulse Strength [Right Radial] Normal Respiratory Rate 18 19 23 Respiratory Effort / Characteristics Non-Labored Spontaneous Non-Labored Spontaneous Respiratory Depth Normal Normal Respiratory Pattern Regular Regular Blood Pressure 171/120 H Blood Pressure [Right Arm] 177/104 H 165/100 H Blood Pressure Mean 137 Blood Pressure Mean [Right Arm] 128 121 Pulse Oximetry 96 99 Oxygen Delivery Method Room Air Room Air Room Air Sepsis Recent Fever Within 48 Hours No Sepsis New/Unexplained Change in Mental Status N/A Sepsis Action Taken by Nursing No Action Required Laboratory Data 10/01/23 12:55 10/01/23 12:55 Lab Results 10/01/23 Range/Units 12:55 WBC 7.13 (4.8-10.8) K/ul RBC 5.09 (4.70-6.10) M/uL Hgb 14.5 (14.0-18.0) g/dl Hct 43.8 (42.0-52.0) % MCV 86.1 (80.0-100.0) fL MCH 28.5 (25.0-34.0) pg MCHC 33.1 (32.0-36.0) g/dL RDW Std Deviation 47.8 H (36.4-46.3) fL RDW Coeff of Radha 15.1 H (11.5-14.5) % Plt Count 273 (130-400) K/uL MPV 10.6 (9.4-12.4) fL Immature Gran % (Auto) 0.3 % Neut % (Auto) 66.3 % Lymph % (Auto) 17.5 % [place] % (Auto) 14.6 % Eos % (Auto) 0.6 % Baso % (Auto) 0.7 % Neut # (Auto) 4.73 (1.40-6.50) K/uL Lymph # (Auto) 1.25 (1.20-3.40) K/uL [place] # (Auto) 1.04 H (0.11-0.59) K/uL Eos # (Auto) 0.04 (0.00-0.50) K/uL Baso # (Auto) 0.05 (0.00-0.20) K/uL Immature Gran # (Auto) 0.02 (0.01-0.20) K/uL PT 10.9 (9.0-12.0) Seconds INR 1.0 (0.9-1.1) APTT 33.3 H (21.0-31.0) Seconds PTT Ratio 1.2 Sodium 140 (136-145) mmol/L Potassium 4.3 (3.5-5.1) mmol/L Chloride 105 (98-107) mmol/L Carbon Dioxide 27 (21-32) mmol/L Anion Gap 8 (3-11) BUN 18 (6-23) mg/dl Creatinine 0.91 (0.6-1.4) mg/dl Est Cr Clr Drug Dosing 109.4 ml/min Est GFR ( Amer) 102.1 ml/min Est GFR (Non-Af Amer) 88.1 ml/min BUN/Creatinine Ratio 19.8 (10-20) Glucose 92 (70-99(Fasting)) mg/dl Calcium 9.6 (8.6-10.3) mg/dl Total Bilirubin 1.2 H (0.2-1.0) mg/dl AST 17 (13-39) U/L ALT 21 (7-52) U/L Alkaline Phosphatase 118 H (34-104) U/L Total Protein 7.8 (6.0-8.3) gm/dl Albumin 4.0 (3.4-5.0) gm/dl Globulin 3.8 (2.5-4.0) gm/dl Albumin/Globulin Ratio 1.1 (0.9-2) Administered Medications Discontinued Medications Hydromorphone HCl (Hydromorphone Inj 1 Mg/Ml Syringe) 1 mg IV NOW STA Stop: 10/01/23 15:51 Last Admin: 10/01/23 15:55 Dose: 1 mg Documented By: RENE Ioversol (Optiray 320 500ml) 108 ml IV ONCE ONE Stop: 10/01/23 14:51 Last Admin: 10/01/23 14:47 Dose: 108 ml Documented By: DAMIAN Morphine Sulfate (Morphine Sulfate 4 Mg/Ml 1 Ml Carp\Vial) 4 mg IV NOW STA Stop: 10/01/23 12:54 Last Admin: 10/01/23 13:06 Dose: 4 mg Documented By: DEAN Morphine Sulfate (Morphine Sulfate 4 Mg/Ml 1 Ml Carp\Vial) 4 mg IV NOW STA Stop: 10/01/23 13:43 Last Admin: 10/01/23 14:00 Dose: 4 mg Documented By: DEAN Ondansetron HCl (Ondansetron Inj 2 Mg/Ml 2 Ml Vial) 4 mg IV NOW STA Stop: 10/01/23 12:54 Last Admin: 10/01/23 13:05 Dose: 4 mg Documented By: DEAN Oxycodone/Acetaminophen (Oxycodone/Acetaminophen 5mg/325mg Tab) 1 tab PO NOW STA Stop: 10/01/23 12:14 Last Admin: 10/01/23 12:18 Dose: 1 tab Documented By: DEAN Imaging Data Radiologist's Impression: Extremity Venous Study 10/01/23 12:13 LEFT UPPER EXTREMITY VENOUS DOPPLER HISTORY: pain, swelling left upper extremity COMPARISON STUDY: None. FINDINGS: The left internal jugular vein is patent. There is normal flow within the left subclavian vein. There is normal flow and compressibility within the left axillary, basilic, brachial, radial, ulnar, and visualized cephalic veins. There is a complex collection within the left shoulder which demonstrates heterogeneous echotexture and small fluid levels. This is only partially imaged on this study. Of note, the ulnar and radial arteries are patent. IMPRESSION: 1. No DVT within the left upper extremity. 2. Partially visualized complex collection within the deep soft tissues of the left shoulder. This favors a complex fluid collection and could represent hematoma, abscess, or complex joint effusion. ACT 112: Negative or not required by law. Electronically signed by: Raghavendra Gomez M.D. 10/01/2023 2:25 PM Shoulder X-Ray 10/01/23 12:13 LEFT SHOULDER 2 VIEWS CLINICAL HISTORY: Left shoulder pain and swelling. FINDINGS: 2 views of the left shoulder are obtained. No prior studies are available for comparison at the time of dictation. The skeletal structures are osteopenic. There is no radiographic evidence of fracture or dislocation. Mild degenerative change is noted at the glenohumeral and acromioclavicular joints. Mild soft tissue swelling and soft tissue calcifications are seen overlying the shoulder. The visualized left lung parenchyma appears clear. IMPRESSION: No acute bony abnormality is identified. Electronically signed by: Eric Cervantes M.D. 10/01/2023 1:00 PM Upper Extremity CTA 10/01/23 14:18 CT angio chest wo/w con, CT angio humerus LT wo/w con HISTORY: 63 years-old Male left shoulder pain, swelling, ecchymosis acute chest and left-sided shoulder pain with soft tissue swelling COMPARISON: Doppler study 10/01/2023 TECHNIQUE: CTA of the chest and left humerus was obtained with and without the use of IV contrast. 3-D coronal and sagittal maps were obtained and cemented for review. All measurements were obtained according to NASCET criteria. A dose lowering technique was used consistent with the principals of DINORA. FINDINGS: CTA CHEST: The heart is upper limits of normal in size. Mild coronary artery calcifications. No pericardial effusion. Unremarkable thoracic aorta. There is no thoracic aortic aneurysm or dissection. There is mild descending thoracic aortic tortuosity. Noncontrast scan demonstrates no intramural hematoma. The pulmonary artery is not well opacified secondary to contrast bolus timing. Embolization coils within the abdominal right upper quadrant surgical clips. Saccular aneurysmal dilation at the celiac artery, 10 mm on image 246. A saccular aneurysm is noted within the james hepatis measuring 1.7 cm on image 242. Saccular aneurysmal dilation is noted involving bilateral intercostal arteries measured up to 9 mm, image 158. CT CHEST: Unremarkable thyroid. No lymphadenopathy identified. Mild dependent subsegmental bibasilar atelectasis. No pneumothorax, pleural effusion or overt pulmonary edema. Central airways are patent. Cyst of the left kidney are noted. No acute process of the imaged upper abdomen. CTA LEFT HUMERUS: Large amount of hemorrhage is noted within the glenohumeral joint which appears to extend into the adjacent musculature. Hemorrhage measures up to 7.6 cm in AP dimension. No acute fracture identified. Normal appearance of the left subclavian, axillary and brachial arteries. No aneurysm, dissection, arterial occlusion or acute active extravasation. Linear calcifications in the distribution of the anterosuperior deltoid musculature. IMPRESSION: 1. No thoracic aortic aneurysm or dissection. 2. Embolization coils are noted with surgical clips in the james hepatis. 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 Correlate with history of vasculitis. 3. Large left glenohumeral hemarthrosis with probable intramuscular hemorrhage involving the rotator cuff. No left upper extremity aneurysm or acute active extravasation identified. 4. No acute fracture identified. ACT 112: Negative or not required by law. The above report was generated using voice recognition software. It may contain grammatical, syntax or spelling errors. Electronically signed by: Parminder Villalba M.D. 10/01/2023 3:52 PM Chest CTA 10/01/23 14:20 CT angio chest wo/w con, CT angio humerus LT wo/w con HISTORY: 63 years-old Male left shoulder pain, swelling, ecchymosis acute chest and left-sided shoulder pain with soft tissue swelling COMPARISON: Doppler study 10/01/2023 TECHNIQUE: CTA of the chest and left humerus was obtained with and without the use of IV contrast. 3-D coronal and sagittal maps were obtained and cemented for review. All measurements were obtained according to NASCET criteria. A dose lowering technique was used consistent with the principals of DINORA. FINDINGS: CTA CHEST: The heart is upper limits of normal in size. Mild coronary artery calcifications. No pericardial effusion. Unremarkable thoracic aorta. There is no thoracic aortic aneurysm or dissection. There is mild descending thoracic aortic tortuosity. Noncontrast scan demonstrates no intramural hematoma. The pulmonary artery is not well opacified secondary to contrast bolus timing. Embolization coils within the abdominal right upper quadrant surgical clips. Saccular aneurysmal dilation at the celiac artery, 10 mm on image 246. A saccular aneurysm is noted within the james hepatis measuring 1.7 cm on image 242. Saccular aneurysmal dilation is noted involving bilateral intercostal arteries measured up to 9 mm, image 158. CT CHEST: Unremarkable thyroid. No lymphadenopathy identified. Mild dependent subsegmental bibasilar atelectasis. No pneumothorax, pleural effusion or overt pulmonary edema. Central airways are patent. Cyst of the left kidney are noted. No acute process of the imaged upper abdomen. CTA LEFT HUMERUS: Large amount of hemorrhage is noted within the glenohumeral joint which appears to extend into the adjacent musculature. Hemorrhage measures up to 7.6 cm in AP dimension. No acute fracture identified. Normal appearance of the left subclavian, axillary and brachial arteries. No aneurysm, dissection, arterial occlusion or acute active extravasation. Linear calcifications in the distribution of the anterosuperior deltoid musculature. IMPRESSION: 1. No thoracic aortic aneurysm or dissection. 2. Embolization coils are noted with surgical clips in the james hepatis. 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 Correlate with history of vasculitis. 3. Large left glenohumeral hemarthrosis with probable intramuscular hemorrhage involving the rotator cuff. No left upper extremity aneurysm or acute active extravasation identified. 4. No acute fracture identified. ACT 112: Negative or not required by law. The above report was generated using voice recognition software. It may contain grammatical, syntax or spelling errors. Electronically signed by: Parminder Villalba M.D. 10/01/2023 3:52 PM Discharge Plan Visit Data Chief Complaint: Shoulder Pain Stated Complaint: L SHOULDER PAIN,EDEMA, ED Provider: Eric Varela ED Midlevel Provider: Skyla Cullen Discharge Problem: Hemarthrosis of left shoulder, Injury of left rotator cuff, Intractable pain, Chronic anticoagulation Patient Disposition: Admitted As Inpatient Forms Stand Alone Forms: [facility] [employer] Prescriptions Prescriptions: No Action Hydrocodon/Acetaminophen 5MG/300MG (VICODIN (5MG/300MG)) 1 TAB tablet 1 tab PO Q6H PRN (Reason: Pain) Qty: 0 Pregabalin (Lyrica) 300 MG capsule 300 mg PO BID Qty: 0 DULOXETINE HCL (CYMBALTA) 60 MG capsule 60 mg PO BID Qty: 0 Linzess 72 mcg capsule 72 mcg PO QPM Eliquis 5 mg Tablet 5 mg PO BID Antacid 1 dose PO HS famotidine 40 mg tablet 40 mg PO HS omeprazole 40 mg capsule,delayed release(DR/EC) 40 mg PO DAILY Referrals Referrals: Raleigh Bowser, [facility] [Primary Care Provider] -
[2023-10-01] MEDS ORDERED: ONDANSETRON INJ 2 MG/ML 2 ML VIAL IV STA (12:53)
[2023-10-01] MEDS ORDERED: MoRPHine SULFATE 4 MG/ML 1 ML CARP\\VIAL IV STA ×2 (12:53→13:42)
--- NOTE | 2023-10-01 13:02 | XRay Report ---
LEFT SHOULDER 2 VIEWS CLINICAL HISTORY: Left shoulder pain and swelling. FINDINGS: 2 views of the left shoulder are obtained. No prior studies are available for comparison at the time of dictation. The skeletal structures are osteopenic. There is no radiographic evidence of fracture or dislocation. Mild degenerative change is noted at the glenohumeral and acromioclavicular joints. Mild soft tissue swelling and soft tissue calcifications are seen overlying the shoulder. The visualized left lung parenchyma appears clear. IMPRESSION: No acute bony abnormality is identified. Electronically signed by: Eric Cervantes M.D. 10/01/2023 1:00 PM
[2023-10-01 13:18] LABS: Basophils # (auto) 0.05 K/uL (0.00-0.20); Basophils % (auto) 0.7 %; Eosinophils # (auto) 0.04 K/uL (0.00-0.50); Eosinophils % (auto) 0.6 %; Hematocrit (blood only) 43.8 % (42.0-52.0); Hemoglobin 14.5 g/dl (14.0-18.0); Immature Granulocytes # (auto) 0.02 K/uL (0.01-0.20); Immature Granulocytes % (auto) 0.3 %; Lymphocytes # (auto) 1.25 K/uL (1.20-3.40); Lymphocytes % (auto) 17.5 %; Mean Corpuscular Hemoglobin 28.5 pg (25.0-34.0); Mean Corpuscular Hgb Conc 33.1 g/dL (32.0-36.0); Mean Corpuscular Volume 86.1 fL (80.0-100.0); Mean Platelet Volume 10.6 fL (9.4-12.4); Monocytes # (auto) 1.04 K/uL (0.11-0.59); Monocytes % (auto) 14.6 %; Neutrophils # (auto) 4.73 K/uL (1.40-6.50); Neutrophils % (auto) 66.3 %; Platelet Count 273 K/uL (130-400); RDW Coefficient of Variation 15.1 % (11.5-14.5); RDW Standard Deviation 47.8 fL (36.4-46.3); Red Blood Count 5.09 M/uL (4.70-6.10); White Blood Count 7.13 K/ul (4.8-10.8)
[2023-10-01 13:35] LABS: Albumin Globulin Ratio 1.1 (0.9-2); BUN Creatinine Ratio 19.8 (10-20); Bilirubin,Total 1.2 mg/dl (0.2-1.0); Calcium 9.6 mg/dl (8.6-10.3); Creatinine Clr Calc Pharmacy 109.4 ml/min; Est GFR (African American) 102.1 ml/min; Est GFR (Non-African American) 88.1 ml/min; Globulin 3.8 gm/dl (2.5-4.0); Potassium 4.3 mmol/L (3.5-5.1); Total Protein 7.8 gm/dl (6.0-8.3)
[2023-10-01 14:00] LABS: Partial Thromboplastin Ratio 1.2; Partial Thromboplastin Time 33.3 Seconds (21.0-31.0); Prothrombin Time 10.9 Seconds (9.0-12.0)
--- NOTE | 2023-10-01 14:26 | Ultrasound Report ---
LEFT UPPER EXTREMITY VENOUS DOPPLER HISTORY: pain, swelling left upper extremity COMPARISON STUDY: None. FINDINGS: The left internal jugular vein is patent. There is normal flow within the left subclavian v ein. There is normal flow and compressibility within the left axillary, basilic, brachial, radial, ul andrea, and visualized cephalic veins. There is a complex collection within the left shoulder which demo nstrates heterogeneous echotexture and small fluid levels. This is only partially imaged on this stud y. Of note, the ulnar and radial arteries are patent. IMPRESSION: 1. No DVT within the left upper extremity. 2. Partially visualized complex collection within the deep soft tissues of the left shoulder. This fa vors a complex fluid collection and could represent hematoma, abscess, or complex joint effusion. ACT 112: Negative or not required by law. Electronically signed by: Raghavendra Gomez M.D. 10/01/2023 2:25 PM
[2023-10-01] MEDS ORDERED: OPTIRAY 320 500ml IV ONE (14:50)
--- NOTE | 2023-10-01 15:32 | Emergency Department Note ---
ED Visit Note I was consulted by the Advanced Practice Provider. The case was discussed at length. The patient had presented with some swelling and contusion to his shoulder. This all started after he was using his shoulder and felt a pop. He was on anticoagulants. The patient was quite uncomfortable. CT angio of the area was ordered. A vascular injury was thought possible as the cause for his discomfort. Given the amount of discomfort, the patient will likely require hospitalization at our facility or potentially transfer pending the results of the CT imaging. .
[2023-10-01] MEDS ORDERED: HYDROmorphone INJ 1 MG/ML SYRINGE IV STA ×2 (15:50→18:24)
--- NOTE | 2023-10-01 15:53 | CT Scan Report ---
CT angio chest wo/w con, CT angio humerus LT wo/w con HISTORY: 63 years-old Male left shoulder pain, swelling, ecchymosis acute chest and left-sided shoul viridiana pain with soft tissue swelling COMPARISON: Doppler study 10/01/2023 TECHNIQUE: CTA of the chest and left humerus was obtained with and without the use of IV contrast. 3- D coronal and sagittal maps were obtained and cemented for review. All measurements were obtained acc ording to NASCET criteria. A dose lowering technique was used consistent with the principals of DINORA . FINDINGS: CTA CHEST: The heart is upper limits of normal in size. Mild coronary artery calcifications. No pericardial eff usion. Unremarkable thoracic aorta. There is no thoracic aortic aneurysm or dissection. There is mild descending thoracic aortic tortuosity. Noncontrast scan demonstrates no intramural hematoma. The pul monary artery is not well opacified secondary to contrast bolus timing. Embolization coils within the abdominal right upper quadrant surgical clips. Saccular aneurysmal dilation at the celiac artery, 10 mm on image 246. A saccular aneurysm is noted within the james hepatis measuring 1.7 cm on image 242 . Saccular aneurysmal dilation is noted involving bilateral intercostal arteries measured up to 9 mm, image 158. CT CHEST: Unremarkable thyroid. No lymphadenopathy identified. Mild dependent subsegmental bibasilar atelectasi s. No pneumothorax, pleural effusion or overt pulmonary edema. Central airways are patent. Cyst of the left kidney are noted. No acute process of the imaged upper abdomen. CTA LEFT HUMERUS: Large amount of hemorrhage is noted within the glenohumeral joint which appears to extend into the ad jacent musculature. Hemorrhage measures up to 7.6 cm in AP dimension. No acute fracture identified. N ormal appearance of the left subclavian, axillary and brachial arteries. No aneurysm, dissection, art erial occlusion or acute active extravasation. Linear calcifications in the distribution of the anter osuperior deltoid musculature. IMPRESSION: 1. No thoracic aortic aneurysm or dissection. 2. Embolization coils are noted with surgical clips in the james hepatis. 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 Correlate with hi story of vasculitis. 3. Large left glenohumeral hemarthrosis with probable intramuscular hemorrhage involving the rotator cuff. No left upper extremity aneurysm or acute active extravasation identified. 4. No acute fracture identified. ACT 112: Negative or not required by law. The above report was generated using voice recognition software. It may contain grammatical, syntax o r spelling errors. Electronically signed by: Parminder Villalba M.D. 10/01/2023 3:52 PM
--- NOTE | 2023-10-01 18:09 | History & Physical Report ---
Date of Service October 01, 2023 Assessment & Plan (1) Hemarthrosis of left shoulder: Plan: Clinically, 10/10 L shoulder pain at worst Hx of rotator cuff tears b/l CTA upper extremity showed large left glenohumeral hemarthrosis with probable intramuscular hemorrhage involving the rotator cuff No acute bony abnormalities on L shoulder x-ray No DVT on LUE Doppler Avoid NSAIDs Hold blood thinners Consider Kcentra Acetaminophen 1000 mg twice daily Dilaudid 1 mg IV q6h as needed for pain Appreciate orthopedic consult (2) History of DVT (deep vein thrombosis): Plan: DVT/PE in [address] Patient is on Eliquis 5 mg twice daily Hold anticoag in the setting of hemarthrosis (3) History of AAA (abdominal aortic aneurysm) repair: Plan: Chest CTA revealed no thoracic aortic aneurysm or dissection Plan Disposition: Obs -admit to [facility] Full code Regular diet VTE PPx: SCDs (hold chemical DVT PPx in the setting of hemarthrosis) History of Present Illness Chief Complaint: Shoulder pain Primary Care Provider: Raleigh Bowser Henrry is a 63-year-old male with PMH of Lyme disease, DVT/PE in 2018 (on Eliquis), infection in right shoulder, AAA repair, and bilateral rotator cuff arthropathy. He presented for L shoulder pain with gradually worsening onset over the course of today 10/01. Upper extremity CTA showed left large glenohumeral hemarthrosis. Patient reports that it might have been onset due to "steering his tractor" this morning, but denies other trauma. Hx of torn rotator cuffs in both arms. He took 1 tab of 500mg Tylenol before coming in. He reports that the L shoulder pain got worse throughout the day; not an acute tear or onset. He rates his left shoulder pain 10/10; characterizes it as constant, sharp and stabbing. After receiving Dilaudid, he reported that the pain was bearable, but that it was still 8/10 and constant. He reports it does radiate down to his left hand. He takes Eliquis 5 mg twice daily; last taken this morning. Patient is hypertensive at 171/120 on arrival; vitals otherwise stable. ED course: Zofran, morphine 4 mg IV x2, Dilaudid 1 mg IV x2, Percocet 5/325, and IVF ROS: Patient endorses left shoulder pain and chronic LE swelling. Patient denies fevers, chills, CP, pleuritic CP, SOB, abdominal pain, urinary s/s, or leg pain Allergies Allergy/AdvReac Type Severity Reaction Status Date / Time No Known Allergies Allergy Unverified 05/24/23 11:43 Home Medications Medication Instructions Recorded Confirmed Type Pregabalin (Lyrica) 300 mg PO BID ##0 07/13/15 10/01/23 History DULOXETINE HCL (CYMBALTA) 60 mg PO BID #0 caps 07/14/15 10/01/23 History linaclotide 72 mcg capsule 72 mcg PO QPM PRN Constipation 07/06/21 10/01/23 History (Linzess) from pain medications Antacid 1 dose PO HS 05/23/23 10/01/23 History apixaban 5 mg tablet (Eliquis) 5 mg PO BID 05/23/23 10/01/23 History famotidine 40 mg tablet 40 mg PO HS 05/25/23 10/01/23 History omeprazole 40 mg capsule,delayed 40 mg PO DAILY 05/25/23 10/01/23 History release Past Med/Surg History Medical History History of pulmonary embolism 2018 Infection of shoulder Right History of GI bleed 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 History of gastric ulcer 01/[address] History of DVT (deep vein thrombosis) 2018 12/2022 r/t immobility, taking Eliquis, mahin filter placed Neuropathy History of Lyme disease 2000- Chronic, reason for disabled state per patient (ambulation issues) Anemia Recent diagnosis currently undergoing further evaluation of this (including bone marrow biopsy- results still pending), preop hgb 11.0 on 05/23/23 labs Hearing deficit UNALAKLEET R > L AAA (abdominal aortic aneurysm) Recent repair 01/29/2023 [facility] Surgical History History of AAA (abdominal aortic aneurysm) repair History of bone marrow biopsy History of cholecystectomy History of colonoscopy History of esophagogastroduodenoscopy (EGD) Social History Smoking Status: Never smoker Second Hand Exposure: No; Do You Dip or Chew Tobacco: No; Hx Alcohol Use: Yes Alcohol type: beer Hx Substance Use: No Preferred Language: Angolan Communication Ability: Effective Public Transit Trolley Driver Required: No Beliefs That Will Affect Care: None Current Living Situation: Spouse Other Information That Helps Us Care for You: No Feels Safe at Home: Yes Safety Concerns: Feels Safe At This Time Assistive Devices: Crutches, Hospital Bed and Walker Review of Systems Review of Systems: See HPI above Physical Exam Physical Exam: General: Patient is in physical pain and distress with gaping breath, and is unable to provide adequate history at first; however, able to obtain history after patient given Dilaudid; non-toxic appearing; cooperative HEENT: normocephalic, atraumatic; no scleral icterus; PERRLA w/ EOMs intact; moist mucus membrane; vision and hearing intact Neck: supple; no JVD; no lymphadenopathy; trachea midline Skin: warm, dry without signs of tenting; no cyanosis; no rashes, brusing, lesions, or erythema noted CV: chest wall NTP; RRR; S1/S2 normal; no murmurs/rubs/gallops; pulses intact and symmetric at radial, DP, and PT Lungs: no acute respiratory distress; symmetrical chest wall expansion; clear breath sounds across all lung zamarripa w/o adventitious sounds; no wheezing ABD: Soft, NTP; BS present; no rebound/guarding; no ascites; no distention MSK: no tics or fasciculations; +1 pitting edema in the LEs B/L; patient demons trates the ability to bend left elbow, wiggle fingers and left hand; left shoulder is tender to palpation, nonerythematous, not warm to touch Neuro: A&Ox3; fluent speech; no focal deficits; sensation grossly intact in the LUE Results & Data Results & Data Vital Signs (Past 12 Hours) Vital Signs Temp Pulse Pulse Resp BP BP Pulse Ox 10/01/23 16:26 85 23 165/100 H 10/01/23 13:03 59 L 19 177/104 H 99 10/01/23 11:02 36.6 C 79 18 171/120 H 96 O2 Del Method 10/01/23 16:26 Room Air 10/01/23 13:03 Room Air 10/01/23 11:02 Room Air Laboratory Results Abnormal lab results 10/01/23 Range/Units 12:55 RDW Std Deviation 47.8 H (36.4-46.3) fL RDW Coeff of Radha 15.1 H (11.5-14.5) % [place] # (Auto) 1.04 H (0.11-0.59) K/uL APTT 33.3 H (21.0-31.0) Seconds Total Bilirubin 1.2 H (0.2-1.0) mg/dl Alkaline Phosphatase 118 H (34-104) U/L Diagnostic Findings Extremity Venous Study 10/01/23 12:13 LEFT UPPER EXTREMITY VENOUS DOPPLER HISTORY: pain, swelling left upper extremity COMPARISON STUDY: None. FINDINGS: The left internal jugular vein is patent. There is normal flow within the left subclavian vein. There is normal flow and compressibility within the left axillary, basilic, brachial, radial, ulnar, and visualized cephalic veins. There is a complex collection within the left shoulder which demonstrates heterogeneous echotexture and small fluid levels. This is only partially imaged on this study. Of note, the ulnar and radial arteries are patent. IMPRESSION: 1. No DVT within the left upper extremity. 2. Partially visualized complex collection within the deep soft tissues of the left shoulder. This favors a complex fluid collection and could represent hematoma, abscess, or complex joint effusion. ACT 112: Negative or not required by law. Electronically signed by: Raghavendra Gomez M.D. 10/01/2023 2:25 PM Shoulder X-Ray 10/01/23 12:13 LEFT SHOULDER 2 VIEWS CLINICAL HISTORY: Left shoulder pain and swelling. FINDINGS: 2 views of the left shoulder are obtained. No prior studies are available for comparison at the time of dictation. The skeletal structures are osteopenic. There is no radiographic evidence of fracture or dislocation. Mild degenerative change is noted at the glenohumeral and acromioclavicular joints. Mild soft tissue swelling and soft tissue calcifications are seen overlying the shoulder. The visualized left lung parenchyma appears clear. IMPRESSION: No acute bony abnormality is identified. Electronically signed by: Eric Cervantes M.D. 10/01/2023 1:00 PM Upper Extremity CTA 10/01/23 14:18 CT angio chest wo/w con, CT angio humerus LT wo/w con HISTORY: 63 years-old Male left shoulder pain, swelling, ecchymosis acute chest and left-sided shoulder pain with soft tissue swelling COMPARISON: Doppler study 10/01/2023 TECHNIQUE: CTA of the chest and left humerus was obtained with and without the use of IV contrast. 3-D coronal and sagittal maps were obtained and cemented for review. All measurements were obtained according to NASCET criteria. A dose lowering technique was used consistent with the principals of DINORA. FINDINGS: CTA CHEST: The heart is upper limits of normal in size. Mild coronary artery calcifications. No pericardial effusion. Unremarkable thoracic aorta. There is no thoracic aortic aneurysm or dissection. There is mild descending thoracic aortic tortuosity. Noncontrast scan demonstrates no intramural hematoma. The pulmonary artery is not well opacified secondary to contrast bolus timing. Embolization coils within the abdominal right upper quadrant surgical clips. Saccular aneurysmal dilation at the celiac artery, 10 mm on image 246. A saccular aneurysm is noted within the james hepatis measuring 1.7 cm on image 242. Saccular aneurysmal dilation is noted involving bilateral intercostal arteries measured up to 9 mm, image 158. CT CHEST: Unremarkable thyroid. No lymphadenopathy identified. Mild dependent subsegmental bibasilar atelectasis. No pneumothorax, pleural effusion or overt pulmonary edema. Central airways are patent. Cyst of the left kidney are noted. No acute process of the imaged upper abdomen. CTA LEFT HUMERUS: Large amount of hemorrhage is noted within the glenohumeral joint which appears to extend into the adjacent musculature. Hemorrhage measures up to 7.6 cm in AP dimension. No acute fracture identified. Normal appearance of the left subclavian, axillary and brachial arteries. No aneurysm, dissection, arterial occlusion or acute active extravasation. Linear calcifications in the distribution of the anterosuperior deltoid musculature. IMPRESSION: 1. No thoracic aortic aneurysm or dissection. 2. Embolization coils are noted with surgical clips in the james hepatis. 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 Correlate with history of vasculitis. 3. Large left glenohumeral hemarthrosis with probable intramuscular hemorrhage involving the rotator cuff. No left upper extremity aneurysm or acute active extravasation identified. 4. No acute fracture identified. ACT 112: Negative or not required by law. The above report was generated using voice recognition software. It may contain grammatical, syntax or spelling errors. Electronically signed by: Parminder Villalba M.D. 10/01/2023 3:52 PM Chest CTA 10/01/23 14:20 CT angio chest wo/w con, CT angio humerus LT wo/w con HISTORY: 63 years-old Male left shoulder pain, swelling, ecchymosis acute chest and left-sided shoulder pain with soft tissue swelling COMPARISON: Doppler study 10/01/2023 TECHNIQUE: CTA of the chest and left humerus was obtained with and without the use of IV contrast. 3-D coronal and sagittal maps were obtained and cemented for review. All measurements were obtained according to NASCET criteria. A dose lowering technique was used consistent with the principals of DINORA. FINDINGS: CTA CHEST: The heart is upper limits of normal in size. Mild coronary artery calcifications. No pericardial effusion. Unremarkable thoracic aorta. There is no thoracic aortic aneurysm or dissection. There is mild descending thoracic aortic tortuosity. Noncontrast scan demonstrates no intramural hematoma. The pulmonary artery is not well opacified secondary to contrast bolus timing. Embolization coils within the abdominal right upper quadrant surgical clips. Saccular aneurysmal dilation at the celiac artery, 10 mm on image 246. A saccular aneurysm is noted within the james hepatis measuring 1.7 cm on image 242. Saccular aneurysmal dilation is noted involving bilateral intercostal arteries measured up to 9 mm, image 158. CT CHEST: Unremarkable thyroid. No lymphadenopathy identified. Mild dependent subsegmental bibasilar atelectasis. No pneumothorax, pleural effusion or overt pulmonary edema. Central airways are patent. Cyst of the left kidney are noted. No acute process of the imaged upper abdomen. CTA LEFT HUMERUS: Large amount of hemorrhage is noted within the glenohumeral joint which appears to extend into the adjacent musculature. Hemorrhage measures up to 7.6 cm in AP dimension. No acute fracture identified. Normal appearance of the left subclavian, axillary and brachial arteries. No aneurysm, dissection, arterial occlusion or acute active extravasation. Linear calcifications in the distribution of the anterosuperior deltoid musculature. IMPRESSION: 1. No thoracic aortic aneurysm or dissection. 2. Embolization coils are noted with surgical clips in the james hepatis. 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 Correlate with history of vasculitis. 3. Large left glenohumeral hemarthrosis with probable intramuscular hemorrhage involving the rotator cuff. No left upper extremity aneurysm or acute active extravasation identified. 4. No acute fracture identified. ACT 112: Negative or not required by law. The above report was generated using voice recognition software. It may contain grammatical, syntax or spelling errors. Electronically signed by: Parminder Villalba M.D. 10/01/2023 3:52 PM Code Status & VTE Plan Code Status Full code VTE Prophylaxis Plan VTE Prophylaxis will be ordered: Yes Supervising Physician Co-Signing Physician Notes I personally saw and examined the patient. I independently reviewed the labs, EKG, imaging, problem list, medication list, past medical history and family history. I verified all mclean points and agree with Raghavendra Elliott PA-C with the following exceptions and/or additions: 63 year old male presents to the ER with left shoulder pain. Notable history of shoulder infection on right side without arthroplasty. Unable to control pain in the emergency room. 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 Patient on lifelong Eliquis for prior history of PE/DVT x2, IVC filter in place, last clot > 1 year ago. Safe to hold Eliquis at this time. No active bleeding on CTA as discussed with Dr Jiang therefore no need for KCentra currently. Pain management with dilaudid overnight and regular acetaminophen. Avoid NSAIDs. Consult orthopedics PG Care Time/CCT Total # of Minutes Spent Total Time Spent with Patient: Total time spent is greater than 50% in coordination of care (as documented) at patient's floor/unit and/or counseling patient: Coding [place] [address] INT INP/OBS CARE 2/55MIN Patient Type Established Medical Decision Making Moderate Complexity Diagnoses Hemarthrosis of left shoulder M25.012 History of DVT (deep vein thrombosis) Z86.718 History of AAA (abdominal aortic aneurysm) repair Z98.890
[2023-10-01] MEDS ORDERED: ACETAMINOPHEN 500 MG TAB PO SCH (21:00)
[2023-10-01] MEDS ORDERED: linaCLOtide 72 MCG CAPSULE PO PRN (22:03)
[2023-10-01] MEDS ORDERED: HYDROmorphone INJ 1 MG/ML SYRINGE IV PRN (22:30)
[2023-10-01] MEDS: PREGABALIN 150 MG CAP PO SCH (23:11)
[2023-10-01] MEDS: DULoxetine HCL 60 MG CAP PO SCH (23:11)
[2023-10-01] MEDS: FAMOTIDINE 40 MG TABLET PO SCH (23:12)
[2023-10-01] MEDS: HYDROmorphone INJ 1 MG/ML SYRINGE IV PRN (23:42)
[2023-10-02] MEDS: HYDROmorphone INJ 1 MG/ML SYRINGE IV PRN ×2 (03:10→12:41)
[2023-10-02] MEDS: ACETAMINOPHEN 500 MG TAB PO SCH ×3 (05:25→19:44)
[2023-10-02 08:02] LABS: Basophils # (auto) 0.05 K/uL (0.00-0.20); Eosinophils % (auto) 1.9 %; Hemoglobin 13.2 g/dl (14.0-18.0); Immature Granulocytes # (auto) 0.01 K/uL (0.01-0.20); Immature Granulocytes % (auto) 0.2 %; Lymphocytes # (auto) 1.05 K/uL (1.20-3.40); Lymphocytes % (auto) 20.1 %; Mean Corpuscular Hemoglobin 28.9 pg (25.0-34.0); Mean Corpuscular Volume 87.7 fL (80.0-100.0); Mean Platelet Volume 10.8 fL (9.4-12.4); Monocytes % (auto) 21.1 %; Neutrophils # (auto) 2.91 K/uL (1.40-6.50); Neutrophils % (auto) 55.7 %; Platelet Count 236 K/uL (130-400); RDW Standard Deviation 48.2 fL (36.4-46.3); Red Blood Count 4.56 M/uL (4.70-6.10); White Blood Count 5.22 K/ul (4.8-10.8)
[2023-10-02] MEDS: DULoxetine HCL 60 MG CAP PO SCH ×2 (08:32→19:44)
[2023-10-02] MEDS: PANTOprazole 40 MG TAB PO SCH (08:32)
[2023-10-02 08:33] LABS: BUN Creatinine Ratio 15.4 (10-20); Calcium 8.9 mg/dl (8.6-10.3); Creatinine Clr Calc Pharmacy 126.8 ml/min; Est GFR (African American) 109.8 ml/min; Est GFR (Non-African American) 94.7 ml/min; Potassium 3.7 mmol/L (3.5-5.1)
[2023-10-02] MEDS: PREGABALIN 150 MG CAP PO SCH ×2 (08:33→19:43)
--- NOTE | 2023-10-02 08:41 | Hospitalist Progress Note ---
Date of Service October 02, 2023 Assessment & Plan (1) Hemarthrosis of left shoulder: Plan: 63 yo w/ PMHx significant for DVT/PE (2017, on eliquis), AAA repair (Dec 2022), and remote infection of his RIGHT shoulder over the summer requiring I&D and IV abx and discharged 05/29 for additional 4wks Rocephin He reports possibly bumping around on tractor/twisting and pulling in hx b/l rotator cuff tears on eliquis for remote DVT Clinically, 10/10 L shoulder pain at worst On admission, CTA LEFT UE showed large left glenohumeral hemarthrosis with probable intramuscular hemorrhage involving the rotator cuff No acute bony abnormalities on L shoulder x-ray No DVT on LUE Doppler Avoid NSAIDs Holding eliquis (last DVT to leg in Dec at [place] undergoing his AAA repair and reported prolonged immobilization in hospital for several weeks, has IVC filter in place) Requested records from [facility] PCP regarding ongoing management/anticoagulation given such Is on cymbalta, HIGH dose, increased risk of bleeding while on anticoagulation Hgb 14.5--> 13.2 on repeat and monitoring Pain control: Tylenol, dilaudid Added PO Oxycodone as needed to limit need for IV/longer lasting control Instructed on proper tylenol use/dosing (had been taking 1500mg at a time, will change tylenol to 2gm max for now) TB/ALp elevated but NO RUQ pain on exam Orthopedics consulted, Dr Jiang, however patient followed by Dr Lebron and changed consultation for today Discussed would like more information about plan for eliquis as he is unsure why he still needs to be on this. No hx afib, appears prior DVT was provoked in setting of surgery/prolonged immobilization Possible dc tomorrow pending repeat labs/orthopedic evaluation (2) Chronic anticoagulation: Plan: on eliquis for hx DVT/PE, but also on cymbalta 60mg BID Appears significant dose, adverse reactions w/ increased risk of bleeding w/ use of antiplatelets/anticoagulants. Will discuss w/ patient about indication for such/likely recommend reducing this risk Also noting patient w/ hx gastric ulcer and again would want to decrease risk of bleeding in patient on anticoagultion, presenting w/ hemarthrosis Requested records from PCP, also discussed cymbalta use which he prefers to continue Needing more information, has IVF filter in place (3) History of DVT (deep vein thrombosis): Plan: DVT/PE in 2018, Mahin filter in place Patient is on Eliquis 5 mg twice daily (last DVT as above) Eliquis on hold given hemarthrosis, would continue to hold for now and requested more information from PCP office (4) History of AAA (abdominal aortic aneurysm) repair: Plan: Chest CTA revealed no thoracic aortic aneurysm or dissection (5) History of gastric ulcer: Plan: hx of such, prior on PPI BID, H2 BID -- reports taking each ONCE daily at present. 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 Ok to hold ELiquis for now given shoulder hemarthrosis If pain controlled tomorrow, will dc to home Subjective Eval this morning, sitting up in bed, NAD, pain much improved since PO Oxycodone. had been taking 3 - 500mg tylenol at home at a time, maybe twice daily. reviewed dosing 1gm MAX at a time, 3gm in a day. NO abdominal pain/RUQ pain. Has not yet seen orthopedics, prior seen by Dr Lebron. 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 Discussed his cymbalta use which he notes for chronic lyme and pain management but increases risk of bleeding w/ anticoagulation. He notes he has a history of clot but he thinks it was from being in the hospital for several weeks and immobilization. Discussed need to investigate further, no hx afib, but if able to come off anticoagulation could continue cymbalta but would want to further discuss if needing continued anticoagulation. Last clot in his leg in Feburary when at [facility] getting AAA repair. Saw SARAH Bowser about a month ago, will request most recent notes to see about planned length of treatment for possible provoked DVT per patient. 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 FINDINGS: The left internal jugular vein is patent. There is normal flow within the left subclavian vein. There is normal flow and compressibility within the left axillary, basilic, brachial, radial, ulnar, and visualized cephalic veins. There is a complex collection within the left shoulder which demonstrates heterogeneous echotexture and small fluid levels. This is only partially imaged on this study. Of note, the ulnar and radial arteries are patent. IMPRESSION: 1. No DVT within the left upper extremity. 2. Partially visualized complex collection within the deep soft tissues of the left shoulder. This favors a complex fluid collection and could represent hematoma, abscess, or complex joint effusion. ACT 112: Negative or not required by law. Electronically signed by: Raghavendra Gomez M.D. 10/01/2023 2:25 PM Upper Extremity CTA 10/01/23 14:18 CT angio chest wo/w con, CT angio humerus LT wo/w con HISTORY: 63 years-old Male left shoulder pain, swelling, ecchymosis acute chest and left-sided shoulder pain with soft tissue swelling COMPARISON: Doppler study 10/01/2023 TECHNIQUE: CTA of the chest and left humerus was obtained with and without the use of IV contrast. 3-D coronal and sagittal maps were obtained and cemented for review. All measurements were obtained according to NASCET criteria. A dose lowering technique was used consistent with the principals of DINORA. FINDINGS: CTA CHEST: The heart is upper limits of normal in size. Mild coronary artery calcifications. No pericardial effusion. Unremarkable thoracic aorta. There is no thoracic aortic aneurysm or dissection. There is mild descending thoracic aortic tortuosity. Noncontrast scan demonstrates no intramural hematoma. The pulmonary artery is not well opacified secondary to contrast bolus timing. Embolization coils within the abdominal right upper quadrant surgical clips. Saccular aneurysmal dilation at the celiac artery, 10 mm on image 246. A saccular aneurysm is noted within the james hepatis measuring 1.7 cm on image 242. Saccular aneurysmal dilation is noted involving bilateral intercostal arteries measured up to 9 mm, image 158. CT CHEST: Unremarkable thyroid. No lymphadenopathy identified. Mild dependent subsegmental bibasilar atelectasis. No pneumothorax, pleural effusion or overt pulmonary edema. Central airways are patent. Cyst of the left kidney are noted. No acute process of the imaged upper abdomen. CTA LEFT HUMERUS: Large amount of hemorrhage is noted within the glenohumeral joint which appears to extend into the adjacent musculature. Hemorrhage measures up to 7.6 cm in AP dimension. No acute fracture identified. Normal appearance of the left subclavian, axillary and brachial arteries. No aneurysm, dissection, arterial occlusion or acute active extravasation. Linear calcifications in the distribution of the anterosuperior deltoid musculature. IMPRESSION: 1. No thoracic aortic aneurysm or dissection. 2. Embolization coils are noted with surgical clips in the james hepatis. 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 Correlate with history of vasculitis. 3. Large left glenohumeral hemarthrosis with probable intramuscular hemorrhage involving the rotator cuff. No left upper extremity aneurysm or acute active extravasation identified. 4. No acute fracture identified. ACT 112: Negative or not required by law. The above report was generated using voice recognition software. It may contain grammatical, syntax or spelling errors. Electronically signed by: Parminder Villalba M.D. 10/01/2023 3:52 PM Chest CTA 10/01/23 14:20 CT angio chest wo/w con, CT angio humerus LT wo/w con HISTORY: 63 years-old Male left shoulder pain, swelling, ecchymosis acute chest and left-sided shoulder pain with soft tissue swelling COMPARISON: Doppler study 10/01/2023 TECHNIQUE: CTA of the chest and left humerus was obtained with and without the use of IV contrast. 3-D coronal and sagittal maps were obtained and cemented for review. All measurements were obtained according to NASCET criteria. A dose lowering technique was used consistent with the principals of DINORA. FINDINGS: CTA CHEST: The heart is upper limits of normal in size. Mild coronary artery calcifications. No pericardial effusion. Unremarkable thoracic aorta. There is no thoracic aortic aneurysm or dissection. There is mild descending thoracic aortic tortuosity. Noncontrast scan demonstrates no intramural hematoma. The pulmonary artery is not well opacified secondary to contrast bolus timing. Embolization coils within the abdominal right upper quadrant surgical clips. Saccular aneurysmal dilation at the celiac artery, 10 mm on image 246. A saccular aneurysm is noted within the james hepatis measuring 1.7 cm on image 242. Saccular aneurysmal dilation is noted involving bilateral intercostal arteries measured up to 9 mm, image 158. CT CHEST: Unremarkable thyroid. No lymphadenopathy identified. Mild dependent subsegmental bibasilar atelectasis. No pneumothorax, pleural effusion or overt pulmonary edema. Central airways are patent. Cyst of the left kidney are noted. No acute process of the imaged upper abdomen. CTA LEFT HUMERUS: Large amount of hemorrhage is noted within the glenohumeral joint which appears to extend into the adjacent musculature. Hemorrhage measures up to 7.6 cm in AP dimension. No acute fracture identified. Normal appearance of the left subclavian, axillary and brachial arteries. No aneurysm, dissection, arterial occlusion or acute active extravasation. Linear calcifications in the distribution of the anterosuperior deltoid musculature. IMPRESSION: 1. No thoracic aortic aneurysm or dissection. 2. Embolization coils are noted with surgical clips in the james hepatis. 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 Correlate with history of vasculitis. 3. Large left glenohumeral hemarthrosis with probable intramuscular hemorrhage involving the rotator cuff. No left upper extremity aneurysm or acute active extravasation identified. 4. No acute fracture identified. ACT 112: Negative or not required by law. The above report was generated using voice recognition software. It may contain grammatical, syntax or spelling errors. Electronically signed by: Parminder Villalba M.D. 10/01/2023 3:52 PM PG Care Time/CCT Total # of Minutes Spent Total Time Spent with Patient: Total time spent is greater than 50% in coordination of care (as documented) at patient's floor/unit and/or counseling patient: Coding Level of Care Code 69842 SUB INP/OBS CARE 3/50MIN Diagnoses Hemarthrosis of left shoulder M25.012 Chronic anticoagulation Z79.01 History of DVT (deep vein thrombosis) Z86.718 History of AAA (abdominal aortic aneurysm) repair Z98.890 History of gastric ulcer Z87.11
[2023-10-02] MEDS ORDERED: oxyCODONE HCL IR 5 MG TAB (IMMEDIATE RELEASE) PO STA (08:47)
[2023-10-02 09:11] LABS: Albumin Level 3.5 gm/dl (3.4-5.0); Bilirubin Direct 0.2 mg/dl (0-0.2); Bilirubin,Total 1.5 mg/dl (0.2-1.0)
[2023-10-02 09:17] LABS: C Reactive Protein 3.04 mg/dl (0-0.5); Total Protein 6.5 gm/dl (6.0-8.3)
--- NOTE | 2023-10-02 12:21 | Orthopedic Consultation ---
Date of Service October 02, 2023 Assessment & Plan (1) Hemarthrosis of left shoulder: At this point, he is doing quite well with his pain control. He does have known left shoulder rotator cuff pathology that he is interested in getting surgical fixation on. He is aware that this can be completed on an outpatient basis. Left glenohumeral hemarthrosis is likely secondary to his Eliquis use with rotator cuff pathology of the left shoulder. CTA does not show any active hemorrhaging to the left shoulder. He may use a sling for comfort to the left upper extremity. He does note that he has an appointment already scheduled with Dr. Lebron in 2 weeks. I did state that he should keep this appointment. From an orthopedic standpoint, he would be cleared to be discharged home. If there is any change in situation, please [place] text or reach out by phone to the [facility] office. History of Present Illness Reason for Consultation: . Left shoulder hemarthrosis Requesting Physician: . Attending Physician: Lisa Mcconnell MD . Patient is a 63-year-old gentleman who is known to orthopedics due to being status post right shoulder arthroscopic irrigation and debridement by Dr. Lebron on 05/24/2023. He has since been seen in the office in which she stated new issues developing to the left shoulder. At that point it was discovered that he had left shoulder rotator cuff pathology. He is currently in physical therapy for his left shoulder as well as for his right. On 10/01/2023, he st ates that he was outside helping with yard work where he was using his tractor all day with gradually increasing pain to the left shoulder. He noted at that point he had a sharp 10 out of 10 pain to the left shoulder in which he reported to [facility] emergency department for pain control. A CTA was completed which showed a large left glenohumeral hemarthrosis likely secondary to rotator cuff patholog y. He noted today, that his pain is extremely better and that he is eager to go home. He notes that he also has regained some motion to the left shoulder due to the pain subsiding. He denies any neck pain, distal extremity pain, numbness/tingling, or paresthesias. He is currently on anticoagulation with Eliquis 5 mg tablets twice daily. Allergies Allergy/AdvReac Type Severity Reaction Status Date / Time No Known Allergies Allergy Unverified 05/24/23 11:43 Home Medications Medication Instructions Recorded Confirmed Type Pregabalin (Lyrica) 300 mg PO BID ##0 07/13/15 10/01/23 History DULOXETINE HCL (CYMBALTA) 60 mg PO BID #0 caps 07/14/15 10/01/23 History linaclotide 72 mcg capsule 72 mcg PO QPM PRN Constipation 07/06/21 10/01/23 History (Linzess) from pain medications Antacid 1 dose PO HS 05/23/23 10/01/23 History apixaban 5 mg tablet (Eliquis) 5 mg PO BID 05/23/23 10/01/23 History famotidine 40 mg tablet 40 mg PO HS 05/25/23 10/01/23 History omeprazole 40 mg capsule,delayed 40 mg PO DAILY 05/25/23 10/01/23 History release Past Med/Surg History Medical History History of pulmonary embolism 2018 Infection of shoulder Right History of GI bleed 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 History of gastric ulcer 01/[address] History of DVT (deep vein thrombosis) 2018 12/2022 r/t immobility, taking Eliquis, mahin filter placed Neuropathy History of Lyme disease 2000- Chronic, reason for disabled state per patient (ambulation issues) Anemia Recent diagnosis currently undergoing further evaluation of this (including bone marrow biopsy- results still pending), preop hgb 11.0 on 05/23/23 labs Hearing deficit [facility] [place] R > L AAA (abdominal aortic aneurysm) Recent repair 01/29/2023 [facility] Surgical History History of AAA (abdominal aortic aneurysm) repair History of bone marrow biopsy History of cholecystectomy History of colonoscopy History of esophagogastroduodenoscopy (EGD) Social History Smoking Status: Never smoker Second Hand Exposure: No; Do You Dip or Chew Tobacco: No; Hx Alcohol Use: Yes Alcohol type: beer Hx Substance Use: No Preferred Language: Italian Communication Ability: Effective 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 Physical Exam . Focused exam of the left shoulder reveals no signs of erythema, ecchymosis, edema, or other obvious deformities. Tenderness to palpation diffusely throughout the left shoulder joint. Limited range of motion with forward flexion abduction 0 to 100 degrees. Intact internal and external rotation. 4/5 strength against resistance in all planes secondary to discomfort. Normal range of motion and strength at the elbow, wrist, and all 5 digits. +2 radial pulse. Less than 2-second capillary refill. Normal sensation. Novastan intact. Constitutional WD/WN, vitals as above Respiratory normal respiratory effort, lungs clear to auscultation Cardiovascular RRR, no murmur, no edema Gastrointestinal (Abdomen) normal bowel sounds, soft, nontender, no hepatosplenomegaly Skin no rashes, warm and dry Neurologic patellar DTR's 2+ bilat, sensation intact Psychiatric A+Ox3, euthymic affect Results & Data Results & Data Laboratory Results . Abnormal lab results 10/01/23 10/02/23 Range/Units 12:55 06:48 RBC 4.56 L (4.70-6.10) M/uL Hgb 13.2 L (14.0-18.0) g/dl Hct 40.0 L (42.0-52.0) % RDW Std Deviation 47.8 H 48.2 H (36.4-46.3) fL RDW Coeff of Radha 15.1 H 15.0 H (11.5-14.5) % Lymph # (Auto) 1.05 L (1.20-3.40) K/uL Johnson # (Auto) 1.04 H 1.10 H (0.11-0.59) K/uL APTT 33.3 H (21.0-31.0) Seconds Total Bilirubin 1.2 H 1.5 H (0.2-1.0) mg/dl Alkaline Phosphatase 118 H 113 H (34-104) U/L C-Reactive Protein 3.04 H (0-0.5) mg/dl Diagnostic Findings . Extremity Venous Study 10/01/23 12:13 LEFT UPPER EXTREMITY VENOUS DOPPLER HISTORY: pain, swelling left upper extremity COMPARISON STUDY: None. FINDINGS: The left internal jugular vein is patent. There is normal flow within the left subclavian vein. There is normal flow and compressibility within the left axillary, basilic, brachial, radial, ulnar, and visualized cephalic veins. There is a complex collection within the left shoulder which demonstrates heterogeneous echotexture and small fluid levels. This is only partially imaged on this study. Of note, the ulnar and radial arteries are patent. IMPRESSION: 1. No DVT within the left upper extremity. 2. Partially visualized complex collection within the deep soft tissues of the left shoulder. This favors a complex fluid collection and could represent hematoma, abscess, or complex joint effusion. ACT 112: Negative or not required by law. Electronically signed by: Raghavendra Gomez M.D. 10/01/2023 2:25 PM Shoulder X-Ray 10/01/23 12:13 LEFT SHOULDER 2 VIEWS CLINICAL HISTORY: Left shoulder pain and swelling. FINDINGS: 2 views of the left shoulder are obtained. No prior studies are available for comparison at the time of dictation. The skeletal structures are osteopenic. There is no radiographic evidence of fracture or dislocation. Mild degenerative change is noted at the glenohumeral and acromioclavicular joints. Mild soft tissue swelling and soft tissue calcifications are seen overlying the shoulder. The visualized left lung parenchyma appears clear. IMPRESSION: No acute bony abnormality is identified. Electronically signed by: Eric Cervantes M.D. 10/01/2023 1:00 PM Upper Extremity CTA 10/01/23 14:18 CT angio chest wo/w con, CT angio humerus LT wo/w con HISTORY: 63 years-old Male left shoulder pain, swelling, ecchymosis acute chest and left-sided shoulder pain with soft tissue swelling COMPARISON: Doppler study 10/01/2023 TECHNIQUE: CTA of the chest and left humerus was obtained with and without the use of IV contrast. 3-D coronal and sagittal maps were obtained and cemented for review. All measurements were obtained according to NASCET criteria. A dose lowering technique was used consistent with the principals of ALARA. FINDINGS: CTA CHEST: The heart is upper limits of normal in size. Mild coronary artery calcifications. No pericardial effusion. Unremarkable thoracic aorta. There is no thoracic aortic aneurysm or dissection. There is mild descending thoracic aortic tortuosity. Noncontrast scan demonstrates no intramural hematoma. The pulmonary artery is not well opacified secondary to contrast bolus timing. Embolization coils within the abdominal right upper quadrant surgical clips. Saccular aneurysmal dilation at the celiac artery, 10 mm on image 246. A saccular aneurysm is noted within the james hepatis measuring 1.7 cm on image 242. Saccular aneurysmal dilation is noted involving bilateral intercostal arteries measured up to 9 mm, image 158. CT CHEST: Unremarkable thyroid. No lymphadenopathy identified. Mild dependent subsegmental bibasilar atelectasis. No pneumothorax, pleural effusion or overt pulmonary edema. Central airways are patent. Cyst of the left kidney are noted. No acute process of the imaged upper abdomen. CTA LEFT HUMERUS: Large amount of hemorrhage is noted within the glenohumeral joint which appears to extend into the adjacent musculature. Hemorrhage measures up to 7.6 cm in AP dimension. No acute fracture identified. Normal appearance of the left subclavian, axillary and brachial arteries. No aneurysm, dissection, arterial occlusion or acute active extravasation. Linear calcifications in the distribution of the anterosuperior deltoid musculature. IMPRESSION: 1. No thoracic aortic aneurysm or dissection. 2. Embolization coils are noted with surgical clips in the james hepatis. 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 Correlate with history of vasculitis. 3. Large left glenohumeral hemarthrosis with probable intramuscular hemorrhage involving the rotator cuff. No left upper extremity aneurysm or acute active extravasation identified. 4. No acute fracture identified. ACT 112: Negative or not required by law. The above report was generated using voice recognition software. It may contain grammatical, syntax or spelling errors. Electronically signed by: Parminder Villalba M.D. 10/01/2023 3:52 PM PG Care Time/CCT Total # of Minutes Spent Total Time Spent with Patient: Total time spent is greater than 50% in coordination of care (as documented) at patient's floor/unit and/or counseling patient: Coding Level of Care Code 78677 IN/OBS CONSULT LVL 4,60M Diagnoses Hemarthrosis of left shoulder M25.012
[2023-10-02] MEDS: oxyCODONE HCL IR 5 MG TAB (IMMEDIATE RELEASE) PO PRN ×2 (15:33→19:43)
[2023-10-02] MEDS: FAMOTIDINE 40 MG TABLET PO SCH (19:44)
[2023-10-03] MEDS: PANTOprazole 40 MG TAB PO SCH (07:49)
[2023-10-03] MEDS: ACETAMINOPHEN 500 MG TAB PO SCH (07:49)
[2023-10-03] MEDS: PREGABALIN 150 MG CAP PO SCH (07:49)
[2023-10-03] MEDS: DULoxetine HCL 60 MG CAP PO SCH (07:50)
[2023-10-03] MEDS: oxyCODONE HCL IR 5 MG TAB (IMMEDIATE RELEASE) PO PRN ×2 (07:54→15:51)
[2023-10-03 08:24] LABS: Basophils # (auto) 0.07 K/uL (0.00-0.20); Eosinophils # (auto) 0.07 K/uL (0.00-0.50); Hematocrit (blood only) 43.2 % (42.0-52.0); Hemoglobin 14.5 g/dl (14.0-18.0); Immature Granulocytes # (auto) 0.02 K/uL (0.01-0.20); Immature Granulocytes % (auto) 0.3 %; Lymphocytes # (auto) 0.68 K/uL (1.20-3.40); Lymphocytes % (auto) 9.5 %; Mean Corpuscular Hemoglobin 29.1 pg (25.0-34.0); Mean Corpuscular Hgb Conc 33.6 g/dL (32.0-36.0); Mean Corpuscular Volume 86.6 fL (80.0-100.0); Mean Platelet Volume 10.2 fL (9.4-12.4); Monocytes # (auto) 0.83 K/uL (0.11-0.59); Monocytes % (auto) 11.6 %; Neutrophils # (auto) 5.47 K/uL (1.40-6.50); Neutrophils % (auto) 76.6 %; Platelet Count 243 K/uL (130-400); RDW Coefficient of Variation 14.6 % (11.5-14.5); RDW Standard Deviation 46.4 fL (36.4-46.3); Red Blood Count 4.99 M/uL (4.70-6.10); White Blood Count 7.14 K/ul (4.8-10.8)
[2023-10-03 08:57] LABS: Albumin Level 3.9 gm/dl (3.4-5.0); Bilirubin,Total 1.8 mg/dl (0.2-1.0); Calcium 9.4 mg/dl (8.6-10.3); Magnesium 1.5 mg/dl (1.7-2.4); Potassium 3.6 mmol/L (3.5-5.1)
[2023-10-03 09:03] LABS: Albumin Globulin Ratio 1.1 (0.9-2); BUN Creatinine Ratio 18.1 (10-20); Creatinine Clr Calc Pharmacy 137.4 ml/min; Est GFR (African American) 113.5 ml/min; Est GFR (Non-African American) 97.9 ml/min; Globulin 3.6 gm/dl (2.5-4.0); Total Protein 7.5 gm/dl (6.0-8.3)
[2023-10-03] MEDS: MAGNESIUM SULFATE / D5W 1 GM/100 ML BAG IV SCH ×2 (10:35→12:31)
--- NOTE | 2023-10-03 15:02 | Discharge Summary ---
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 He presented for L shoulder pain with gradually worsening onset over the course of today 10/01. Upper extremity CTA showed left large glenohumeral hemarthrosis. Patient reports that it might have been onset due to "steering his tractor" this morning, but denies other trauma. Hx of torn rotator cuffs in both arms. He took 1 tab of 500mg Tylenol before coming in. He reports that the L shoulder pain got worse throughout the day; not an acute tear or onset. He rates his left shoulder pain 10/10; characterizes it as constant, sharp and stabbing. After receiving Dilaudid, he reported that the pain was bearable, but that it was still 8/10 and constant. He reports it does radiate down to his left hand. He takes Eliquis 5 mg twice daily; last taken this morning. Patient is hypertensive at 171/120 on arrival; vitals otherwise stable. ED course: Zofran, morphine 4 mg IV x2, Dilaudid 1 mg IV x2, Percocet 5/325, and IVF ROS: Patient endorses left shoulder pain and chronic LE swelling. Patient denies fevers, chills, CP, pleuritic CP, SOB, abdominal pain, urinary s/s, or leg pain Principal Dx & Hospital Course #1 = Principal Diagnosis (1) Hemarthrosis of left shoulder: 63 yo w/ PMHx significant for DVT/PE (2017, on eliquis), AAA repair (Dec 2022), and remote infection of his RIGHT shoulder over the summer requiring I&D and IV abx and discharged 05/29 for additional 4wks Rocephin He reports possibly bumping around on tractor/twisting and pulling in hx b/l rotator cuff tears on eliquis for remote DVT Clinically, 10/10 L shoulder pain at worst On admission, CTA LEFT UE showed large left glenohumeral hemarthrosis with probable intramuscular hemorrhage involving the rotator cuff No acute bony abnormalities on L shoulder x-ray No DVT on LUE Doppler Avoid NSAIDs Holding eliquis (last DVT to leg in Dec at [place] undergoing his AAA repair and reported prolonged immobilization in hospital for several weeks, has IVC filter in place) [facility] regarding ongoing management/anticoagulation given such Is on cymbalta, HIGH dose, increased risk of bleeding while on anticoagulat ion Hgb 14.5--> 13.2 on repeat and monitoring Pain control: Tylenol, dilaudid Added PO Oxycodone as needed to limit need for IV/longer lasting control Instructed on proper tylenol use/dosing (had been taking 1500mg at a time, will change tylenol to 2gm max for now) TB/ALp elevated but NO RUQ pain on exam Orthopedics consulted, Dr Jiang, however patient followed by Dr Lebron and changed consultation for today Discussed would like more information about plan for eliquis as he is unsure why he still needs to be on this. No hx afib, appears prior DVT was provoked in setting of surgery/prolonged immobilization Possible dc tomorrow pending repeat labs/orthopedic evaluation (2) Chronic anticoagulation: on eliquis for hx DVT/PE, but also on cymbalta 60mg BID Appears significant dose, adverse reactions w/ increased risk of bleeding w/ use of antiplatelets/anticoagulants. Will discuss w/ patient about indication for such/likely recommend reducing this risk Also noting patient w/ hx gastric ulcer and again would want to decrease risk of bleeding in patient on anticoagultion, presenting w/ hemarthrosis Requested records from PCP, also discussed cymbalta use which he prefers to continue Needing more information, has IVF filter in place (3) History of DVT (deep vein thrombosis): DVT/PE in 2018, [facility] filter in place Patient is on Eliquis 5 mg twice daily (last DVT as above) Eliquis on hold given hemarthrosis, would continue to hold for now and requested more information from PCP office (4) History of gastric ulcer: hx of such, prior on PPI BID, H2 BID -- reports taking each ONCE daily at present. No abdominal pain reported Plan continued inpatient stay, orthopedics eval/PCP records requested possible dc tomorrow pending eval/repeat labs Updated Medication List Medication Instructions Recorded Confirmed Type Pregabalin (Lyrica) 300 mg PO BID ##0 07/13/15 10/01/23 History DULOXETINE HCL (CYMBALTA) 60 mg PO BID #0 caps 07/14/15 10/01/23 History linaclotide 72 mcg capsule 72 mcg PO QPM PRN Constipation 07/06/21 10/01/23 History (Linzess) from pain medications Antacid 1 dose PO HS 05/23/23 10/01/23 History apixaban 5 mg tablet (Eliquis) 5 mg PO BID 05/23/23 10/01/23 History famotidine 40 mg tablet 40 mg PO HS 05/25/23 10/01/23 History omeprazole 40 mg capsule,delayed 40 mg PO DAILY 05/25/23 10/01/23 History release acetaminophen 500 mg tablet 1,000 mg (2 x 500 mg) PO BID PRN 10/03/23 Rx (Tylenol Extra Strength) pain #60 tabs oxycodone 5 mg tablet 5 mg PO Q4H PRN moderate-severe 10/03/23 Rx pain #10 tabs Hospital Stay Data Consultations 10/01/23 16:54 ED Decision to Admit Stat 10/01/23 19:01 Consult Orthopedic Surgery Routine 10/02/23 11:18 HIM [Consult Health Information Management] Routine Diagnostic Imagining Performed 10/01/23 12:13 US venous doppler UE LT Stat 10/01/23 14:18 CT angio humerus LT wo/w con Stat 10/01/23 14:20 CT angio chest wo/w con Stat Pending Results Patient Have Any Pending Studies at Discharge: No Discharge Instructions Given to Patient (Per Discharging Provider) You were admitted with pain from bleeding into your shoulder joint. This likely occurred as a result from a torn rotator cuff, but given that there were multiple small aneurysms seen on your CT scans, I question if you had a small aneurysm rupture. You should remain OFF of your ELIQUIS at least for now. You can take oxycodone for moderate-severe pain and tylenol as needed for mild- moderate pain. Because of the multiple small aneurysms seen on your CT scan and your history of a ruptured aneurysm, it is recommended that you see a Vascular Surgeon as well as a Flight Simulator Teacher to see if you need any treatment of these aneurysms. Referrals will be made for you with these specialists. Coding Diagnoses Hemarthrosis of left shoulder M25.012 Chronic anticoagulation Z79.01 History of DVT (deep vein thrombosis) Z86.718 History of gastric ulcer Z87.11
== END 2023-10-03 16:53 | disposition home or self-care (01) ==
LOC: ED 10:51 → 3N 10:51 → SUATTDRO 18:56 → 3N 21:29